=== PATIENT | female | born 1940 | race Caucasian/White ===

== ENCOUNTER → 2022-07-09 13:04 | Outpatient (BNVA) | payer MEDICARE, SELFPAY | PROVIDERS: PCP Internal Medicine; Visit Provider Student in an Organized Health Care Education/Training Program | DX: M05.80 Other rheumatoid arthritis with rheumatoid factor of unspecified site (principal); Z79.631 Long term (current) use of antimetabolite agent | CPT/HCPCS: 99202 ==

== ENCOUNTER 2022-11-10 12:56 | Outpatient (AMB) | payer MEDICARE, SELFPAY ==
--- NOTE | 2022-11-10 12:57 | MHC.OFFVIS ---
Intake Vital Signs 11/10/22 12:58 Height 5 ft 4 in Weight 174 lb 13.225 oz BMI 30.0 BP 150/82 H Blood Pressure Location Rt brachial Position Sitting Pulse 78 Pulse Source Pulse Oximeter Pulse Oximetry (%) 97 Oxygen Delivery Method Room Air Intake Visit Reasons: RA Intake Note: Patient presents for RA Allergies hydrochlorothiazide [Zestoretic] Allergy (Unknown, Verified 11/10/22 13:00) Unknown hydroxychloroquine [Plaquenil] Allergy (Unknown, Verified 11/10/22 13:00) Unknown ibuprofen Allergy (Unknown, Verified 11/10/22 13:00) Unknown lisinopril [Zestoretic] Allergy (Unknown, Verified 11/10/22 13:00) Unknown sacubitril [Entresto] Allergy (Unknown, Verified 11/10/22 13:00) Unknown valsartan [Entresto] Allergy (Unknown, Verified 11/10/22 13:00) Unknown Medication List - Last Reconciled 11/10/22 by Alphonse Washington MD aspirin 81 mg PO DAILY atorvastatin 40 mg PO DAILY folic acid 3 mg PO DAILY lisinopril 10 mg PO BID methotrexate sodium 25 mg (10 x 2.5 mg) PO QWEEK metoprolol tartrate 25 mg PO BID metoprolol tartrate 50 mg PO BID omeprazole 20 mg PO DAILY sulfasalazine 500 mg PO BID HPI HPI Comments History of Present Illness Details 82-year-old female with seropositive erosive RA returns for follow-up. Doing about the same overall. Continues to multiple joint aches and stiffness. But states that her mobility is unchanged. She called her insurance company and ask about copays for multiple biologics including TNF inhibitors, I 6 inhibitors, Orencia and she was told she will have a co-pay of 1500 dollars a month. Initial history: this is an 81-year-old female with seropositive erosive RA who presents as a new patient. 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 She had a history of hypertension, dyslipidemia, CAD s/p CABG who presents for RA evaluation. Patient states that she feels about the same. He has some pain and stiffness of her right shoulder. Her major problem is in her right knee. She states that her arthritis is worse with cold weather and when it is damp. She continues to take methotrexate 10 tabs once weekly plus folic acid and sulfasalazine 500 mg Twice daily. She denies any shortness of breath PFSH Medical History Allergic rhinitis CAD (coronary artery disease) Congestive heart failure Dyslipidemia Hypertension Surgical History Hx of CABG Social History Alcohol intake: current Alcohol intake frequency: holidays/special occasions only Alcohol type: wine Patient Tobacco Use Status: Never used Tobacco Review of Systems Eyes Reports no additional complaints Musc Reports arthralgias, Reports limited range of motion and Reports stiffness Physical Exam Vital Signs: Last Vital Signs Pulse 78 11/10/22 12:58 BP 150/82 H 11/10/22 12:58 Pulse Ox 97 11/10/22 12:58 Oxygen Delivery Method Room Air 11/10/22 12:58 BMI result Body Mass Index 30.0 Const General: cooperative, healthy appearing and comfortable Nutritional Appearance: overweight Orientation/consciousness: patient oriented x3 Limitations: no limitations HEENT Head: Yes normocephalic and Yes atraumatic Mouth: moist mucous membranes Resp Effort & Inspection: normal respiratory effort and able to speak in complete sentences Neuro General: patient oriented x3 Extrem Other: RA and osteoarthritic changes of both hands. Right wrist swelling without tenderness multiple swan-neck deformities Ulnar deviation at the MCPs of left hand. Significantly limited range of motion of right shoulder left knee swelling, warmth, crepitus and pain with range of motion Deformities of toes bilaterally Results Reviewed Results Reviewed: Labs 01/2022? CRP 59.6 (<9) ESR 55 CMP unremarkable except for low albumin 3.2 CBC Hemoglobin 10.9 MCV 93.8? Platelets 346 WBC 7.9 2 Labs 05/2021? CRP 103.2 ESR 69 QuantiFERON test negative Labs 03/2021? CRP 55.2 ESR 43 Labs 12/2020? Iron 42 (35-150) TIBC 213 (250-450) Iron saturation % 19.7 Labs 08/2020? Immunofixation:? No monoclonal proteins detected Assessment & Plan Assessment & Plan (1) Seropositive erosive rheumatoid arthritis: Comment: ++RF++CCP erosive dx 2017 side effect to HCQ On methotrexate throughout Sulfasalazine added around 2020 Code(s): M05.80 - Other rheumatoid arthritis with rheumatoid factor of unspecified site Plan: This is an 82-year-old female with seropositive erosive RA who presents for follow-up. Her inflammatory markers are persistently elevated Patient previously refused biologic treatments. She is worried about the risk of infections and she stated that her co-pay is quite high. She called her insurance company and has about multiple biologics and he was told that her co-pay would be above 1500 dollars a month We had a long conversation today about the risk of uncontrolled rheumatoid arthritis such as worsening deformities, ruptured tendons, accelerated osteoarthritis in addition to risk of cardiovascular disease. Patient already has CAD s/p CABG. We also discussed risks and benefits of biologic treatments. We also discussed potentially doing infusions which likely would be 80% covered by her Medicare Part B and 20% by her supplemental insurance. Patient is not interested in that at this point I suggested adding leflunomide or increasing sulfasalazine dose. Patient is not interested in making any changes today. She will think about Continue methotrexate 25 mg once weekly split dose and folic acid 3 mg daily. 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 Will monitor patient for side effects with frequent lab work. Advised patient to take folic acid daily to prevent complications of methotrexate. (3) Screening for osteoporosis: Code(s): Z13.820 - Encounter for screening for osteoporosis Plan: Due to active RA and her age, she is at risk of osteoporosis. Will discuss a DEXA scan next visit Plan I spent 29 minutes reviewing patient's chart, evaluating patient, ordering diagnostic workup, counseling patient and documenting in the chart Orders: Orders Comprehensive Met. 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
[2022-11-10 12:58] VITALS: BP 150/82; PULSE 78; O2SAT 97
== END 2022-11-10 13:40 | disposition home or self-care (01) ==
PROVIDERS: PCP Internal Medicine; Visit Provider Student in an Organized Health Care Education/Training Program
DX: M05.80 Other rheumatoid arthritis with rheumatoid factor of unspecified site (principal); Z79.631 Long term (current) use of antimetabolite agent; Z13.820 Encounter for screening for osteoporosis
CPT/HCPCS: 99214

== ENCOUNTER → 2022-11-10 12:56 | Outpatient (BNVA) | payer MEDICARE, SELFPAY | PROVIDERS: Visit Provider Student in an Organized Health Care Education/Training Program | DX: M05.80 Other rheumatoid arthritis with rheumatoid factor of unspecified site (principal); Z79.631 Long term (current) use of antimetabolite agent | CPT/HCPCS: 99212 ==

== ENCOUNTER 2023-04-20 11:45 | Outpatient (REF) | payer MEDICARE, SELFPAY ==
[2023-04-20 13:18] LABS: MANUAL DIFF FLAG NO
[2023-04-20 13:21] LABS: Basophils Percent Auto 0.3 % (0-2); Eosinophils Absolute Auto 0.3 X10*3/uL (0.0-0.4); Eosinophils Percent Auto 3.2 % (0-4); Hematocrit 36.2 % (37.0-47.0); Hemoglobin 11.9 g/dl (12.0-16.0); Imm Gran Abs Auto 0.03 X10*3/uL (0.00-0.03); Imm Gran Pct Auto 0.3 % (0.0-0.4); Lymphocytes Absolute Auto 1.5 X10*3/uL (1.2-4.9); Lymphocytes Percent Auto 14.4 % (20-40); Mean Corpuscular HGB Conc 32.9 g/dl (31.0-35.0); Mean Corpuscular Hemoglobin 31.2 pg (27.0-33.0); Mean Platelet Volume 9.4 fL (9.4-12.3); Monocytes Absolute Auto 0.9 X10*3/uL (0.1-1.2); Monocytes Percent Auto 8.4 % (2-11); Neutrophils Absolute Auto 7.7 x10*3/uL (2.0-8.3); Neutrophils Percent Auto 73.4 % (45-73); Platelet Count 299 X10*3/uL (160-400); Red Blood Count 3.81 X10*6/uL (4.20-5.50); Red Cell Distribution Width 15.4 % (11.0-16.0); White Blood Count 10.5 X10*3/uL (4.8-10.8)
[2023-04-20 14:00] LABS: Erythrocyte Sedimentation Rate 23 MM/HR (0-20)
[2023-04-20 14:55] LABS: Alanine Aminotransferase 9 U/L (0-31); Alkaline Phosphatase 113 U/L (39-117); Anion Gap 10 (12-20); Aspartate Amino Transferase 17 U/L (5-31); Bilirubin Total 0.4 mg/dL (0.0-1.0); Blood Urea Nitrogen 12 mg/dL (9-16); C Reactive Protein 1.25 mg/dL (< or = 0.50); Calcium 9.3 mg/dL (8.4-10.2); Carbon Dioxide 29 mmol/L (22-29); Chloride 104 mmol/L (96-108); Estimated Glomerular Filt Rate > 60; Glucose Random 104 mg/dL (60-115); Potassium 4.4 mmol/L (3.3-5.1); Sodium 139 mmol/L (135-145); Total Protein 7.2 g/dL (6.5-8.0)
== END 2023-04-20 11:46 | disposition home or self-care (01) ==
LOC: HO.10HDL 11:45
PROVIDERS: Visit Provider Student in an Organized Health Care Education/Training Program
DX: M05.9 Rheumatoid arthritis with rheumatoid factor, unspecified (principal); Z79.631 Long term (current) use of antimetabolite agent
CPT/HCPCS: 36415; 80053; 85025; 85652; 86140

== ENCOUNTER 2023-04-29 12:51 | Outpatient (AMB) | payer MEDICARE, SELFPAY ==
--- NOTE | 2023-04-29 12:53 | A.OFFVIS_ITS ---
Intake Vital Signs 04/29/23 12:54 Height 5 ft 4 in Weight 182 lb 8.684 oz BMI 31.3 BP 120/72 Blood Pressure Location Lt brachial Position Sitting Pulse 74 Pulse Source Pulse Oximeter Temp 97 F Temp Source Skin Pulse Oximetry (%) 98 Oxygen Delivery Method Room Air Intake Visit Reasons: RA Intake Note: Patient last seen 11/10/22 presents today for follow up and test results. Reports no changes or concerns today. 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 Clerk Required: No Accompanied by: Self / Same As Patient Allergies hydrochlorothiazide [Zestoretic] Allergy (Unknown, Verified 04/29/23 12:54) Unknown hydroxychloroquine [Plaquenil] Allergy (Unknown, Verified 04/29/23 12:54) Unknown ibuprofen Allergy (Unknown, Verified 04/29/23 12:54) Unknown lisinopril [Zestoretic] Allergy (Unknown, Verified 04/29/23 12:54) Unknown sacubitril [Entresto] Allergy (Unknown, Verified 04/29/23 12:54) Unknown valsartan [Entresto] Allergy (Unknown, Verified 04/29/23 12:54) Unknown Medication List - Last Reconciled 04/29/23 by Alphonse Washington MD aspirin 81 mg PO DAILY atorvastatin 40 mg PO DAILY cholecalciferol (vitamin D3) 1 PO QWEEK folic acid 3 mg (3 x 1 mg) PO DAILY lisinopril 10 mg PO BID methotrexate sodium 25 mg (10 x 2.5 mg) PO QWEEK metoprolol tartrate 25 mg PO BID metoprolol tartrate 50 mg PO BID omeprazole 20 mg PO DAILY sulfasalazine 500 mg PO BID HPI HPI Comments History of Present Illness Details 82-year-old female with seropositive ero sive RA returns for follow-up. Doing about the same overall. She states that she feels Slightly better. Continues to have multiple joint aches and stiffness. But states that her mobility is unchanged. Has not had any falls Initial history: this is an 81-year-old female with seropositive erosive RA who presents as a new patient. 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 She had a history of hypertension, dyslipidemia, CAD s/p CABG who presents for RA evaluation. Patient states that she feels about the same. He has some pain and stiffness of her right shoulder. Her major problem is in her right knee. She states that her arthritis is worse with cold weather and when it is damp. She continues to take methotrexate 10 tabs once weekly plus folic acid and sulfasalazine 500 mg Twice daily. She denies any shortness of breath [facility] Medical History Allergic rhinitis CAD (coronary artery disease) Congestive heart failure Dyslipidemia Hypertension Surgical History Hx of CABG Social History Household Members: None Household Members Other:: [employer] [place] Alcohol intake: current Alcohol intake frequency: holidays/special occasions only Alcohol type: wine Patient Tobacco Use Status: Never used Tobacco Review of Systems Eyes Reports no additional complaints Musc Reports arthralgias, Reports limited range of motion and Reports stiffness Physical Exam Vital Signs: Last Vital Signs Temp 97 F 04/29/23 12:54 Pulse 74 04/29/23 12:54 BP 120/72 04/29/23 12:54 Pulse Ox 98 04/29/23 12:54 Oxygen Delivery Method Room Air 04/29/23 12:54 BMI result Body Mass Index 31.3 Const General: cooperative, healthy appearing and comfortable Nutritional Appearance: overweight Orientation/consciousness: patient oriented x3 Limitations: no limitations HEENT Head: Yes normocephalic and Yes atraumatic Mouth: moist mucous membranes Resp Effort & Inspection: normal respiratory effort and able to speak in complete sentences Neuro General: patient oriented x3 Extrem Other: RA and osteoarthritic changes of both hands. Right wrist swelling without tenderness multiple swan-neck deformities Ulnar deviation at the MCPs of left hand. Significantly limited range of motion of right shoulder Bilateral knee limited range of motion. Deformities of toes bilaterally Results Reviewed Results Reviewed: Labs 01/2022? CRP 59.6 (<9) ESR 55 CMP unremarkable except for low albumin 3.2 CBC Hemoglobin 10.9 MCV 93.8? Platelets 346 WBC 7.9 2 Labs 05/2021? CRP 103.2 ESR 69 QuantiFERON test negative Labs 03/2021? CRP 55.2 ESR 43 Labs 12/2020? Iron 42 (35-150) TIBC 213 (250-450) Iron saturation % 19.7 Labs 08/2020? Immunofixation:? No monoclonal proteins detected Assessment & Plan Assessment & Plan (1) Seropositive erosive rheumatoid arthritis: Comment: ++RF++CCP erosive dx 2017 side effect to HCQ On methotrexate throughout Sulfasalazine added around 2020 Code(s): M05.80 - Other rheumatoid arthritis with rheumatoid factor of unspecified site Plan: This is an 82-year-old female with seropositive erosive RA who presents for follow-up. Her inflammatory markers are persistently elevated Patient previously refused biologic treatments. She is worried about the risk of infections and she stated that her co-pay is quite high. She called her insurance company and has about multiple biologics and he was told that her co- pay would be above 1500 dollars a month We had a long conversation today about the risk of uncontrolled rheumatoid arthritis such as worsening deformities, ruptured tendons, accelerated osteoarthritis in addition to risk of cardiovascular disease. Patient already has CAD s/p CABG. Patient definitely does not want any biologics. Discussed increasing sulfasalazine to 1000 mg Twice daily. Patient agrees. Continue methotrexate 25 mg once weekly split dose and folic acid 3 mg daily. 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 Will monitor patient for side effects with frequent lab work. Advised patient to take folic acid daily to prevent complications of methotrexate. (3) Screening for osteoporosis: Code(s): Z13.820 - Encounter for screening for osteoporosis Plan: Due to active RA and her age, she is at risk of osteoporosis. DEXA scan discussed. Discussed weight-bearing exercises. Will check vitamin-D level before next visit (4) Immunization counseling: Code(s): Z71.85 - Encounter for immunization safety counseling Plan: Patient is up-to-date on her COVID booster, flu vaccine, RSV vaccine & pneumonia vaccine Plan I spent 29 minutes reviewing patient's chart, evaluating patient, ordering diagnostic workup, counseling patient and documenting in the chart Orders: Orders Comprehensive Met. Panel 6 Months Z79.631 - assisted (current) use of antimetabolite agent C Reactive Protein 6 Months Z79.631 - assisted (current) use of antimetabolite agent Complete Blood Count Auto Diff Today M05.80 - Other rheumatoid arthritis with rheumatoid factor of unspecified site, Z79.631 - assisted (current) use of antimetabolite agent C Reactive Protein Today M05.80 - Other rheumatoid arthritis with rheumatoid factor of unspecified site, Z79.631 - ocean transportation intermediary (current) use of antimetabolite agent Complete Blood Count Auto Diff 07/28/23 M05.80 - Other rheumatoid arthritis with rheumatoid factor of unspecified site, Z79.631 - assisted (current) use of antimetabolite agent Complete Blood Count Auto Diff 10/26/23 M05.80 - Other rheumatoid arthritis with rheumatoid factor of unspecified site, Z79.631 - assisted (current) use of antimetabolite agent Complete Blood Count Auto Diff 07/22/24 M05.80 - Other rheumatoid arthritis with rheumatoid factor of unspecified site, Z79.631 - ocean transportation intermediary (current) use of antimetabolite agent Complete Blood Count Auto Diff 01/18/25 M05.80 - Other rheumatoid arthritis with rheumatoid factor of unspecified site, Z79.631 - assisted (current) use of antimetabolite agent Comprehensive Met. Panel Today M05.80 - Other rheumatoid arthritis with rheumatoid factor of unspecified site, Z79.631 - assisted (current) use of antimetabolite agent Comprehensive Met. Panel 01/24/24 M05.80 - Other rheumatoid arthritis with rheumatoid factor of unspecified site, Z79.631 - assisted (current) use of antimetabolite agent Comprehensive Met. Panel 04/23/24 M05.80 - Other rheumatoid arthritis with rheumatoid factor of unspecified site, Z79.631 - assisted (current) use of antimetabolite agent Vitamin D 25-OH (D2 and D3) 6 Months E55.9 - Vitamin D deficiency, unspecified Complete Blood Count Auto Diff 6 Months Z79.631 - assisted (current) use of antimetabolite agent Erythrocyte Sedimentation Rate 6 Months Z79.631 - ocean transportation intermediary (current) use of antimetabolite agent Comprehensive Met. Panel Today M05.80 - Other rheumatoid arthritis with rheumatoid factor of unspecified site, Z79.631 - ocean transportation intermediary (current) use of antimetabolite agent Erythrocyte Sedimentation Rate Today M05.80 - Other rheumatoid arthritis with rheumatoid factor of unspecified site, Z79.631 - assisted (current) use of antimetabolite agent Complete Blood Count Auto Diff Today M05.80 - Other rheumatoid arthritis with rheumatoid factor of unspecified site, Z79.631 - assisted (current) use of antimetabolite agent Complete Blood Count Auto Diff 01/24/24 M05.80 - Other rheumatoid arthritis with rheumatoid factor of unspecified site, Z79.631 - ocean transportation intermediary (current) use of antimetabolite agent Complete Blood Count Auto Diff 04/23/24 M05.80 - Other rheumatoid arthritis with rheumatoid factor of unspecified site, Z79.631 - ocean transportation intermediary (current) use of antimetabolite agent Complete Blood Count Auto Diff 10/20/24 M05.80 - Other rheumatoid arthritis with rheumatoid factor of unspecified site, Z79.631 - ocean transportation intermediary (current) use of antimetabolite agent Comprehensive Met. Panel 07/28/23 M05.80 - Other rheumatoid arthritis with rheumatoid factor of unspecified site, Z79.631 - assisted (current) use of antimetabolite agent Comprehensive Met. Panel 10/26/23 M05.80 - Other rheumatoid arthritis with rheumatoid factor of unspecified site, Z79.631 - ocean transportation intermediary (current) use of antimetabolite agent Comprehensive Met. Panel 07/22/24 M05.80 - Other rheumatoid arthritis with rheumatoid factor of unspecified site, Z79.631 - assisted (current) use of antimetabolite agent Comprehensive Met. Panel 10/20/24 M05.80 - Other rheumatoid arthritis with rheumatoid factor of unspecified site, Z79.631 - assisted (current) use of antimetabolite agent Comprehensive Met. Panel 01/18/25 M05.80 - Other rheumatoid arthritis with rheumatoid factor of unspecified site, Z79.631 - ocean transportation intermediary (current) use of antimetabolite agent C Reactive Protein Today M05.80 - Other rheumatoid arthritis with rheumatoid factor of unspecified site, Z79.631 - assisted (current) use of antimetabolite agent Erythrocyte Sedimentation Rate Today M05.80 - Other rheumatoid arthritis with rheumatoid factor of unspecified site, Z79.631 - assisted (current) use of antimetabolite agent XR DEXA axial skeleton Today M81.0 - Age-related osteoporosis without current pathological fracture Medications: Changed From sulfasalazine 500 mg PO BID 180 tabs 1RF To sulfasalazine 1 g (2 x 500 mg) PO BID 120 tabs 2RF Refilled folic acid 3 mg (3 x 1 mg) PO DAILY 270 tabs 1RF Coding Level of Care Code Est Pt Level 5 (91535) Diagnoses Seropositive erosive rheumatoid arthritis M05.80 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
[2023-04-29 12:54] VITALS: BP 120/72; PULSE 74; TEMP 36.1; O2SAT 98; BMI 31.3
== END 2023-04-29 13:23 | disposition home or self-care (01) ==
PROVIDERS: PCP Internal Medicine; Visit Provider Student in an Organized Health Care Education/Training Program
DX: M05.79 Rheumatoid arthritis with rheumatoid factor of multiple sites without organ or systems involvement (principal); Z79.631 Long term (current) use of antimetabolite agent; Z13.820 Encounter for screening for osteoporosis; Z71.85 Encounter for immunization safety counseling
CPT/HCPCS: 99214

== ENCOUNTER → 2023-04-29 12:51 | Outpatient (BNVA) | payer MEDICARE, SELFPAY | PROVIDERS: PCP Internal Medicine; Visit Provider Student in an Organized Health Care Education/Training Program | DX: M05.80 Other rheumatoid arthritis with rheumatoid factor of unspecified site (principal); Z79.631 Long term (current) use of antimetabolite agent; Z71.85 Encounter for immunization safety counseling | CPT/HCPCS: 99212 ==

== ENCOUNTER 2023-05-14 10:49 | Outpatient (REF) | payer MEDICARE, SELFPAY ==
--- NOTE | ~2023-05-14 | MM_ITS ---
EXAMINATION: BONE DENSITOMETRY CLINICAL INDICATION: Age-related osteoporosis without current pathological fracture. COMPARISON: This is the patient's baseline examination. TECHNIQUE: Using a [employer] DXA System (software version: 13.1) manufactured by [employer], dual-energy x-ray absorptiometry was performed of the lumbar spine and left hip. The images are of good technical quality. Summary results are attached. FINDINGS: AP SPINE L1-L4: BMD 1.121 g/cm2, Z-score 1.0, T-score -0.5, normal. LEFT FEMUR, NECK: BMD 0.637 g/cm2, Z-score -0.8, T-score -2.9, osteoporosis. LEFT FEMUR, TOTAL: BMD 0.677 g/cm2, Z-score -0.7, T-score -2.6, osteoporosis. IDENTIFIED RISK FACTORS: Rheumatoid arthritis. Secondary osteoporosis (early menopause). Hysterectomy. Bilateral oophorectomy. HISTORY OF FRACTURE: None listed. MEDICATIONS: None listed. MM/XR DEXA axial skeleton IMPRESSION: 1. DIAGNOSIS: Osteoporosis based on the lowest T-score value of -2.9 in the femoral neck applying World Health Organization criteria. 2. 10-YEAR FRACTURE RISK PREDICTION, FRAX: According to the guidelines, FRAX calculation should only be performed on patients in the osteopenia bone density category.?Therefore, FRAX was not performed on this patient.? 3. Treatment Recommendations: NOF guidelines recommend consideration for treatment in postmenopausal women and men age 50 and older presenting with the following: -A hip or vertebral (clinical or morphometric) fracture. -T-score less than or equal to -2.5 at the femoral neck or spine after appropriate evaluation to exclude secondary causes. -Low bone mass at the hip or spine and a 10-year fracture probability by FRAX of greater than or equal to 3% for hip fracture or greater than or equal to 20% for major osteoporotic fracture based on the [place] adapted WHO algorithm. 4. Other Recommendations: All treatment decisions require clinical judgment and consideration of individual patient factors, including patient preferences, comorbidities, previous drug use, risk factors not captured in the FRAX model (e.g. frailty, falls, vitamin D deficiency, increased bone turnover, interval significant decline in bone density) and possible under or overestimation of fracture risk by FRAX. Additional medical evaluation for secondary cause of low bone mineral density may be appropriate. FUTURE SCAN RECOMMENDATION: People with diagnosed cases of osteoporosis or at high risk for fracture should have regular bone mineral density tests. For patients eligible for Medicare, routine testing is allowed once every 2 years. The testing frequency can be increased to one year for patients who have rapidly progressing disease, those who are receiving or discontinuing medical therapy to restore bone mass, or have additional risk factors.
== END 2023-05-14 10:50 | disposition home or self-care (01) ==
LOC: HO.MAMMO 10:49
PROVIDERS: Visit Provider Student in an Organized Health Care Education/Training Program
DX: Z13.820 Encounter for screening for osteoporosis (principal); M81.0 Age-related osteoporosis without current pathological fracture; M06.9 Rheumatoid arthritis, unspecified; Z90.710 Acquired absence of both cervix and uterus; Z90.722 Acquired absence of ovaries, bilateral
CPT/HCPCS: 77080

== ENCOUNTER 2023-10-26 11:19 | Outpatient (REF) | payer MEDICARE, SELFPAY ==
[2023-10-26 11:40] LABS: MANUAL DIFF FLAG NO
[2023-10-26 12:32] LABS: Basophils Percent Auto 0.3 % (0-2); Eosinophils Absolute Auto 0.3 X10*3/uL (0.0-0.4); Eosinophils Percent Auto 3.7 % (0-4); Hematocrit 36.5 % (37.0-47.0); Hemoglobin 11.6 g/dl (12.0-16.0); Imm Gran Abs Auto 0.06 X10*3/uL (0.00-0.03); Imm Gran Pct Auto 0.7 % (0.0-0.4); Lymphocytes Absolute Auto 1.5 X10*3/uL (1.2-4.9); Lymphocytes Percent Auto 16.5 % (20-40); Mean Corpuscular HGB Conc 31.8 g/dl (31.0-35.0); Mean Corpuscular Hemoglobin 30.8 pg (27.0-33.0); Mean Corpuscular Volume 96.8 fL (80.0-98.0); Mean Platelet Volume 9.6 fL (9.4-12.3); Monocytes Absolute Auto 0.9 X10*3/uL (0.1-1.2); Neutrophils Absolute Auto 6.2 x10*3/uL (2.0-8.3); Neutrophils Percent Auto 68.8 % (45-73); Platelet Count 291 X10*3/uL (160-400); Red Blood Count 3.77 X10*6/uL (4.20-5.50); Red Cell Distribution Width 15.2 % (11.0-16.0)
[2023-10-26 12:55] LABS: Alanine Aminotransferase 8 U/L (0-31); Albumin Level 3.7 g/dL (3.5-5.0); Alkaline Phosphatase 112 U/L (39-117); Anion Gap 15 (12-20); Aspartate Amino Transferase 14 U/L (5-31); Bilirubin Total 0.3 mg/dL (0.0-1.0); Blood Urea Nitrogen 10 mg/dL (9-16); C Reactive Protein 2.29 mg/dL (< or = 0.50); Calcium 9.5 mg/dL (8.4-10.2); Carbon Dioxide 20 mmol/L (22-29); Chloride 107 mmol/L (96-108); Estimated Glomerular Filt Rate > 60; Glucose Random 111 mg/dL (60-115); Potassium 4.2 mmol/L (3.3-5.1); Sodium 138 mmol/L (135-145)
[2023-10-30 14:23] LABS: Vitamin D 25-OH, D2 <4 ng/mL; Vitamin D 25-OH, D3 27 ng/mL; Vitamin D 25-OH, Total 27 ng/mL (30-100)
== END 2023-10-26 11:20 | disposition home or self-care (01) ==
LOC: HO.LAB 11:19
PROVIDERS: Visit Provider Student in an Organized Health Care Education/Training Program
DX: M05.80 Other rheumatoid arthritis with rheumatoid factor of unspecified site (principal); Z79.631 Long term (current) use of antimetabolite agent; E55.9 Vitamin D deficiency, unspecified
CPT/HCPCS: 36415; 80053; 82306; 85025; 85652; 86140

== ENCOUNTER 2023-10-29 09:33 | Outpatient (REF) | payer MEDICARE, SELFPAY ==
[2023-10-29 09:54] LABS: MANUAL DIFF FLAG NO
[2023-10-29 11:04] LABS: Basophils Percent Auto 0.4 % (0-2); Eosinophils Absolute Auto 0.4 X10*3/uL (0.0-0.4); Eosinophils Percent Auto 4.4 % (0-4); Hematocrit 35.8 % (37.0-47.0); Hemoglobin 11.6 g/dl (12.0-16.0); Imm Gran Abs Auto 0.03 X10*3/uL (0.00-0.03); Imm Gran Pct Auto 0.4 % (0.0-0.4); Lymphocytes Absolute Auto 1.5 X10*3/uL (1.2-4.9); Lymphocytes Percent Auto 18.6 % (20-40); Mean Corpuscular HGB Conc 32.4 g/dl (31.0-35.0); Mean Corpuscular Hemoglobin 30.7 pg (27.0-33.0); Mean Corpuscular Volume 94.7 fL (80.0-98.0); Mean Platelet Volume 9.8 fL (9.4-12.3); Monocytes Absolute Auto 0.4 X10*3/uL (0.1-1.2); Monocytes Percent Auto 5.5 % (2-11); Neutrophils Absolute Auto 5.7 x10*3/uL (2.0-8.3); Neutrophils Percent Auto 70.7 % (45-73); Platelet Count 322 X10*3/uL (160-400); Red Blood Count 3.78 X10*6/uL (4.20-5.50); Red Cell Distribution Width 14.7 % (11.0-16.0)
[2023-10-29 11:45] LABS: Erythrocyte Sedimentation Rate 36 MM/HR (0-20)
[2023-10-29 12:03] LABS: Alanine Aminotransferase 12 U/L (0-31); Alkaline Phosphatase 113 U/L (39-117); Anion Gap 12 (12-20); Aspartate Amino Transferase 17 U/L (5-31); Bilirubin Total 0.5 mg/dL (0.0-1.0); Blood Urea Nitrogen 9 mg/dL (9-16); Carbon Dioxide 28 mmol/L (22-29); Chloride 105 mmol/L (96-108); Estimated Glomerular Filt Rate > 60; Glucose Random 96 mg/dL (60-115); Potassium 4.4 mmol/L (3.3-5.1); Sodium 141 mmol/L (135-145); Total Protein 7.2 g/dL (6.5-8.0)
== END 2023-10-29 09:34 | disposition home or self-care (01) ==
LOC: HO.LAB 09:33
PROVIDERS: PCP Internal Medicine; Visit Provider Student in an Organized Health Care Education/Training Program
DX: M05.80 Other rheumatoid arthritis with rheumatoid factor of unspecified site (principal); Z79.631 Long term (current) use of antimetabolite agent
CPT/HCPCS: 36415; 80053; 85025; 85652; 86140

== ENCOUNTER 2023-11-02 09:26 | Outpatient (AMB) | payer MEDICARE, SELFPAY ==
--- NOTE | 2023-11-02 09:43 | MHC.OFFVIS ---
Vital Signs 11/02/23 09:47 Height 5 ft 4 in Weight 177 lb 14.609 oz BMI 30.5 BP 124/62 Blood Pressure Location Lt brachial Position Sitting Pulse 70 Pulse Source Pulse Oximeter Pulse Oximetry (%) 98 Oxygen Delivery Method Room Air Intake Visit Reasons: RA/CM Intake Note: Patient presents for RA. Allergies hydrochlorothiazide [Zestoretic] Allergy (Unknown, Verified 11/02/23 09:47) Unknown hydroxychloroquine [Plaquenil] Allergy (Unknown, Verified 11/02/23 09:47) Unknown ibuprofen Allergy (Unknown, Verified 11/02/23 09:47) Unknown lisinopril [Zestoretic] Allergy (Unknown, Verified 11/02/23 09:47) Unknown sacubitril [Entresto] Allergy (Unknown, Verified 11/02/23 09:47) Unknown valsartan [Entresto] Allergy (Unknown, Verified 11/02/23 09:47) Unknown Medication List - Last Reconciled 11/02/23 by Alphonse Washington MD aspirin 81 mg PO DAILY atorvastatin 40 mg PO DAILY cholecalciferol (vitamin D3) 1 PO QWEEK folic acid 3 mg (3 x 1 mg) PO DAILY lisinopril 10 mg PO BID methotrexate sodium 25 mg (10 x 2.5 mg) PO QWEEK metoprolol tartrate 25 mg PO BID metoprolol tartrate 50 mg PO BID omeprazole 20 mg PO DAILY sulfasalazine 1 g (2 x 500 mg) PO BID HPI Comments Details: 83-year-old female with seropositive erosive RA returns for follow-up. Doing about the same overall. She could not tolerate sulfasalazine 1 g Twice daily due to GI upset and nausea, she reduced it back to 500 mg Twice daily, she remains on methotrexate and folic acid. She states that she feels about the same overall, no significant joint pain swelling or stiffness. Has not had any falls, has not had any recent illnesses Initial history: this is an 81-year-old female with seropositive erosive RA who presents as a new patient. 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 She had a history of hypertension, dyslipidemia, CAD s/p CABG who presents for RA evaluation. Patient states that she feels about the same. He has some pain and stiffness of her right shoulder. Her major problem is in her right knee. She states that her arthritis is worse with cold weather and when it is damp. She continues to take methotrexate 10 tabs once weekly plus folic acid and sulfasalazine 500 mg Twice daily. She denies any shortness of breath [facility] Medical History Allergic rhinitis CAD (coronary artery disease) Congestive heart failure Dyslipidemia Hypertension Surgical History Hx of CABG Social History Household Members: None Household Members Other:: [facility] Alcohol intake: current Alcohol intake frequency: holidays/special occasions only Alcohol type: wine Patient Tobacco Use Status: Never used Tobacco Female Reproductive History Menstrual Total pregnancies: 4 Full term: 4 Number of Living Children: 3 Review of Systems Eyes Reports no additional complaints Musc Reports arthralgias, Reports limited range of motion and Reports stiffness Physical Exam Vital Signs: Last Vital Signs Pulse 70 11/02/23 09:47 BP 124/62 11/02/23 09:47 Pulse Ox 98 11/02/23 09:47 Oxygen Delivery Method Room Air 11/02/23 09:47 BMI result Body Mass Index 30.5 Const General: cooperative, healthy appearing and comfortable Nutritional Appearance: overweight Orientation/consciousness: patient oriented x3 Limitations: no limitations HEENT Head: Yes normocephalic and Yes atraumatic Mouth: moist mucous membranes Resp Effort & Inspection: normal respiratory effort and able to speak in complete sentences Auscultation: clear to auscultation bilaterally Cardio Rate: regular rate Rhythm: regular rhythm Neuro General: patient oriented x3 Extrem Other: RA and osteoarthritic changes of both hands. no wrist tenderness or swelling bilaterally multiple swan-neck deformities Ulnar deviation at the MCPs of left hand. Significantly limited range of motion of right shoulder Bilateral knee crepitus and limited range of motion. No pain Deformities of toes bilaterally Assessment & Plan Assessment & Plan (1) Seropositive erosive rheumatoid arthritis: Comment: ++RF++CCP erosive dx 2017 side effect to HCQ On methotrexate throughout Sulfasalazine added around 2020 Code(s): M05.80 - Other rheumatoid arthritis with rheumatoid factor of unspecified site Category: Medical Plan: This is an 83-year-old female with seropositive erosive RA who presents for follow-up. Her inflammatory markers are persistently elevated Patient previously refused and continues to refuse biologic treatments. She is worried about the risk of infections and she stated that her co-pay is quite high. She called her insurance company and has about multiple biologics and he was told that her co-pay would be above 1500 dollars a month In previous visits, We had multiple conversations about the risk of uncontrolled rheumatoid arthritis such as worsening deformities, ruptured tendons, accelerated osteoarthritis in addition to risk of cardiovascular disease. Patient already has CAD s/p CABG. Patient definitely does not want any biologics. I increased her sulfasalazine to 1 g Twice daily last visit, patient could not tolerate the increased dose due to GI upset and nausea, she reduced it it back to 500 mg Twice daily Continue methotrexate 25 mg once weekly split dose and folic acid 3 mg daily. 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 Will monitor patient for side effects with frequent lab work. Advised patient to take folic acid daily to prevent complications of methotrexate. (3) Osteoporosis: Code(s): M81.0 - Age-related osteoporosis without current pathological fracture Category: Medical Qualifiers: Osteoporosis type: age-related Presence of current pathological fracture: without current pathological fracture Qualified Code(s): M81.0 - Age-related osteoporosis without current pathological fracture Plan: Discussed osteoporosis treatment. She states that she took calcium and vitamin-D prescribed by her PCP in the past for bone health and she developed a kidney stone, she stopped them. Discussed with patient that she needs antiresorptive agents. Discussed risks and benefits of alendronate. Patient agreed to proceed. Will start alendronate 70 mg weekly Advised patient to call the office if she develops any side effects Plan I spent 46 minutes reviewing patient's chart, evaluating patient, ordering diagnostic workup, counseling patient and documenting in the chart Medications: New alendronate Take 1 tab once weekly, 1st thing in the morning, on an empty stomach, with a large glass of water (at least 6 oz) and stay upright for 30 minutes 70 mg PO QWEEK 4 tabs 0RF Coding Level of Care Code Est Pt Level 5 (60347) Complex EM visit Add On G2211 Diagnoses Seropositive erosive rheumatoid arthritis M05.80 [facility] methotrexate user Z79.631 Age-related osteoporosis without current pathological fracture M81.0 Osteoporosis type: age-related Presence of current pathological fracture: without current pathological fracture
[2023-11-02 09:47] VITALS: BP 124/62; PULSE 70; O2SAT 98; BMI 30.5
== END 2023-11-02 10:28 | disposition home or self-care (01) ==
PROVIDERS: PCP Internal Medicine; Visit Provider Student in an Organized Health Care Education/Training Program
DX: M05.89 Other rheumatoid arthritis with rheumatoid factor of multiple sites (principal); Z79.631 Long term (current) use of antimetabolite agent; M81.0 Age-related osteoporosis without current pathological fracture
CPT/HCPCS: 99215; G2211

== ENCOUNTER → 2023-11-02 09:26 | Outpatient (BNVA) | payer MEDICARE, SELFPAY | PROVIDERS: PCP Internal Medicine; Visit Provider Student in an Organized Health Care Education/Training Program | DX: M05.80 Other rheumatoid arthritis with rheumatoid factor of unspecified site (principal); M81.0 Age-related osteoporosis without current pathological fracture; M25.611 Stiffness of right shoulder, not elsewhere classified; Z79.631 Long term (current) use of antimetabolite agent | CPT/HCPCS: 99212 ==

== ENCOUNTER 2024-07-12 10:50 | Outpatient (REF) | payer MEDICARE, SELFPAY ==
[2024-07-12 13:16] LABS: MANUAL DIFF FLAG NO
[2024-07-12 13:35] LABS: Basophils Percent Auto 0.3 % (0-2); Eosinophils Absolute Auto 0.4 X10*3/uL (0.0-0.4); Eosinophils Percent Auto 3.8 % (0-4); Hematocrit 36.3 % (37.0-47.0); Hemoglobin 11.7 g/dl (12.0-16.0); Imm Gran Abs Auto 0.05 X10*3/uL (0.00-0.03); Imm Gran Pct Auto 0.4 % (0.0-0.4); Lymphocytes Percent Auto 16.8 % (20-40); Mean Corpuscular HGB Conc 32.2 g/dl (31.0-35.0); Mean Corpuscular Hemoglobin 28.6 pg (27.0-33.0); Mean Corpuscular Volume 88.8 fL (80.0-98.0); Mean Platelet Volume 9.1 fL (9.4-12.3); Monocytes Absolute Auto 1.4 X10*3/uL (0.1-1.2); Monocytes Percent Auto 11.6 % (2-11); Neutrophils Absolute Auto 7.8 x10*3/uL (2.0-8.3); Neutrophils Percent Auto 67.1 % (45-73); Platelet Count 383 X10*3/uL (160-400); Red Blood Count 4.09 X10*6/uL (4.20-5.50); Red Cell Distribution Width 13.9 % (11.0-16.0); White Blood Count 11.6 X10*3/uL (4.8-10.8)
[2024-07-12 14:05] LABS: Alanine Aminotransferase 7 U/L (0-31); Albumin Level 3.9 g/dL (3.5-5.0); Alkaline Phosphatase 114 U/L (39-117); Anion Gap 10 (12-20); Aspartate Amino Transferase 21 U/L (5-31); Bilirubin Total 0.2 mg/dL (0.0-1.0); Blood Urea Nitrogen 14 mg/dL (9-16); Calcium 9.6 mg/dL (8.4-10.2); Carbon Dioxide 24 mmol/L (22-29); Chloride 108 mmol/L (96-108); Estimated Glomerular Filt Rate > 60; Glucose Random 81 mg/dL (60-115); Potassium 4.3 mmol/L (3.3-5.1); Sodium 138 mmol/L (135-145); Total Protein 7.6 g/dL (6.5-8.0)
== END 2024-07-12 10:51 | disposition home or self-care (01) ==
LOC: HO.10HDL 10:50
PROVIDERS: Visit Provider Student in an Organized Health Care Education/Training Program
DX: M05.80 Other rheumatoid arthritis with rheumatoid factor of unspecified site (principal); Z79.631 Long term (current) use of antimetabolite agent
CPT/HCPCS: 36415; 80053; 85025

== ENCOUNTER 2024-08-22 14:08 | Outpatient (AMB) | payer MEDICARE, SELFPAY ==
[2024-08-22 14:09] VITALS: BP 128/78; PULSE 88; O2SAT 98; BMI 29.9
--- NOTE | 2024-08-22 14:09 | A.OFFVIS_ITS ---
Vital Signs 08/22/24 14:09 Height 5 ft 4 in Weight 174 lb BMI 29.9 BP 128/78 Blood Pressure Location Lt brachial Position Sitting Pulse 88 Pulse Source Pulse Oximeter Pulse Oximetry (%) 98 Oxygen Delivery Method Room Air Intake Visit Reasons: RA Intake Note: Patient last seen by Doctor Alphonse Washington on 11/02/23. Presents today for RA follow up. Patient would like refill of Alendronate, if possible. Allergies hydrochlorothiazide [Zestoretic] Allergy (Unknown, Verified 08/22/24 14:14) Unknown hydroxychloroquine [Plaquenil] Allergy (Unknown, Verified 08/22/24 14:14) Unknown ibuprofen Allergy (Unknown, Verified 08/22/24 14:14) Unknown lisinopril [Zestoretic] Allergy (Unknown, Verified 08/22/24 14:14) Unknown sacubitril [Entresto] Allergy (Unknown, Verified 08/22/24 14:14) Unknown valsartan [Entresto] Allergy (Unknown, Verified 08/22/24 14:14) Unknown Medication List - Last Reconciled 08/22/24 by Dona Byrd MD alendronate 70 mg PO QWEEK aspirin 81 mg PO DAILY atorvastatin 40 mg PO DAILY lisinopril 10 mg PO BID metoprolol tartrate 25 mg PO BID metoprolol tartrate 50 mg PO BID omeprazole 20 mg PO DAILY HPI Comments Details: Patient is an 83-year-old female with hypertension, hyperlipidemia c/b CAD s/p CABG, osteoporosis polyarticular osteoarthritis and seropositive erosive rheumatoid for follow up Interval History: Patient last seen 11/02/[address] Washington. At that time she was following up for her seropositive erosive rheumatoid arthritis on methotrexate and sulfasalazine. Previously try to increase her sulfasalazine to 1 g twice a day however she had to reduce it to 500 twice a day due to GI upset and nausea. Patient despite having significant arthritic symptoms refuses to go on any biologics due to 1. The high co-pay from her insurance and 2. The concern about side effects. The risks of poorly treating her disease were discussed at the last visit including worsening deformities, ruptured tendons, accelerated osteoarthritis and increased risk of cardiovascular disease and patient did not want to pursue any further treatment. 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 Subsequently she stopped her sulfasalazine due to GI upset. Currently she is not on any medications for her rheumatoid arthritis. Today she states she is doing okay Complaining of right knee pain, which she has a brace on Rheumatologic History: ++RF++CCP erosive dx 2016 side effect to HCQ On methotrexate throughout Sulfasalazine added around 2020 Initial history: this is an 81-year-old female with seropositive erosive RA who presents as a new patient. 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 She had a history of hypertension, dyslipidemia, CAD s/p CABG who presents for RA evaluation. Patient states that she feels about the same. He has some pain and stiffness of her right shoulder. Her major problem is in her right knee. She states that her arthritis is worse with cold weather and when it is damp. She continues to take methotrexate 10 tabs once weekly plus folic acid and sulfasalazine 500 mg Twice daily. She denies any shortness of breath Current Rheumatology Medication(s): Sulfasalazine 500mg bid (not taking) Methotrexate 25mg split dose weekly (not taking) Folic acid 3 mg daily (not taking) Alendronate 70 mg weekly PFSH Medical History Allergic rhinitis CAD (coronary artery disease) Congestive heart failure Dyslipidemia Hypertension Surgical History Hx of CABG Social History Household Members: None Household Members Other:: [facility] Alcohol intake: current Alcohol intake frequency: holidays/special occasions only Alcohol type: wine Patient Tobacco Use Status: Never used Tobacco Review of Systems Const Details: Review of Systems Constitutional: Denies fever, chills, weight loss ENT: Denies vision changes, eye pain or eye redness, dental caries, dry mouth GI: Denies nausea, vomiting, diarrhea, abdominal pain, change in BM Pulm: Denies SOB, MINA, hemoptysis, wheezing Cards: Denies chest pain, palpitations Skin: Denies Raynaud's, rash, nail changes, photosensitivity, REGISTERED 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 Well appearing and in no apparent painful distress HEENT Conjunctiva and sclera clear. ?Pupils equal round and reactive to light. ?No lymphadenopathy. ? CHEST/RESPIRATORY SYSTEM Normal respiratory effort and able to speak in complete sentences. ?Clear to auscultation bilaterally. ?No crackles, rales, rhonchi, wheezes heard. CARDIAC SYSTEM Regular rate and rhythm. ?S1 and S2 heard no murmurs. ?Radial pulses intact bilaterally MSK Hands: ?Able to make a fist. No synovitis noted. Prominent synovial hypertrophy to the MCPs 2-5 bilaterally. With ulnar deviation. Heberden's nodes and Emi's nodes noted. Wrists: ?Decreased range of motion to the wrists bilaterally right worse than left. No tenderness to palpation or synovial hypertrophy noted. Elbows: Full range of motion without pain. No tenderness, weakness, swelling, increased warmth or erythema. Shoulders: Full range of motion to the left shoulder but decreased range of motion to the right shoulder up to about 90 degrees. No tenderness to palpation of the AC joint, subacromial bursa or posterior glenohumeral joint. Knees: ?Full range of motion. ?Crepitations felt bilaterally. Swelling noted to the right knee with mild effusion. Warmth to touch. Left knee cool to touch and no swelling noted. Ankles: Full range of motion. ?No tenderness, swelling, increased warmth or erythema.? Feet: ?Negative squeeze test. ?No tenderness to palpation or swelling of the MTPs. Tender points:?No tenderness to palpation of the bilateral trapezius, supraspinatus, greater trochanters, anterior costochondral junctions, bilateral gluteal areas, bilateral suboccipital muscle insertions SKIN Skin intact without rashes. Office Procedures AMB Joint Injection/Aspiration Joint Injection/Aspiration Details: Procedure was explained to the patient and consent was obtained. ? The area of interest was identified and confirmed with patient. ?This was subsequently cleaned with chlorhexidine x3. ? The area was then anesthetized using ethyl chloride spray. 40 mg Kenalog with 1 cc 1% lidocaine was injected without issue. ?Minimal to no bleeding. ?Patient tolerated procedure. Primary Site: right knee Prep: site was prepped using aseptic technique and ethochloride spray was applied Injected: 40 mg of, Kenalog, with 1 mL of, 1% plain lidocaine and in the joint Approach Used: anterior Procedure: The patient tolerated the procedure well Coding 79188 - Large joint Procedure code (CPT) selection complete Office Meds lidocaine (PF) 10 mg/mL (1 %) injection solution Performing Provider: Dona Byrd MD [place] [facility] [place] Administered by: Dona Byrd MD on 08/22/24 15:23 Dose Route Admin Location Dispensed Lot Number Expiration Date [facility] [employer] 1 mL Infiltration right knee 2 mL [id number] 05/27/26 46095-140-18 [facility] mg/mL suspension for injection Performing Provider: Dona Byrd MD [place] [facility] [place] Administered by: Dona Byrd MD on 08/22/24 15:23 Dose Route Admin Location Dispensed Lot Number Expiration Date [facility] [employer] 40 mg intra-articular right knee 1 mL [id number] 09/26/25 [address]-7 [employer] Results Reviewed Results Reviewed: Laboratory Tests 10/26/23 10/29/23 07/12/24 11:38 09:52 10:53 WBC 11.6 H RBC 4.09 L Hgb 11.7 L Hct 36.3 L Plt Count 383 ESR 36 H Sodium 138 Potassium 4.3 Chloride 108 Carbon Dioxide 24 BUN 14 Creatinine 0.66 AST 21 ALT 7 C-Reactive Protein 3.20 H 25-OH Vitamin D Total 27 L DEXA 04/2023 FINDINGS: AP SPINE L1-L4: BMD 1.121 g/cm2, Z-score 1.0, T-score -0.5, normal. LEFT FEMUR, NECK: BMD 0.637 g/cm2, Z-score -0.8, T-score -2.9, osteoporosis. LEFT FEMUR, TOTAL: BMD 0.677 g/cm2, Z-score -0.7, T-score -2.6, osteoporosis. Assessment & Plan Assessment & Plan (1) Seropositive erosive rheumatoid arthritis: Comment: ++RF++CCP erosive dx 2017 side effect to HCQ On methotrexate throughout Sulfasalazine added around 2020 Code(s): M05.80 - Other rheumatoid arthritis with rheumatoid factor of unspecified site Category: Medical Plan: #Seropositive RA Patient is a 83-year-old female with seropositive rheumatoid arthritis here today for follow up. Currently not on any therapies. No evidence of active synovitis on exam today. We will continue to monitor off DMARDs and potentially consider adding Plaquenil in the future Plan - Monitor off DMARDs - RTC 4 months - Labs before visit: CBC, CMP, ESR, CRP (2) Osteoporosis: Comment: DEXA 04/2023: AP spine -0.5, Left femur neck -2.9, Left femur total -2.6 Alendronate 10/2023 Code(s): M81.0 - Age-related osteoporosis without current pathological fracture Category: Medical Qualifiers: Osteoporosis type: age-related Presence of current pathological fracture: without current pathological fracture Qualified Code(s): M81.0 - Age- related osteoporosis without current pathological fracture Plan: #Osteoporosis Patient with osteoporosis of the hip currently on alendronate. Vitamin-D not at goal. Encouraged vitamin-D supplementation Plan - Alendronate 70mg weekly - Vitamin D supplementation (3) Generalized osteoarthritis: Code(s): M15.9 - Polyosteoarthritis, unspecified Plan: #Polyarticular OA Patient with polyarticular osteoarthritis. 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 Plan: #Long-term Use of Bisphosphonates Risks and benefits of bisphosphonates in the management of osteoporosis Benefits include improved bone density, decreased fracture risk Risks include atypical femoral fractures, GI upset, esophageal strictures Contraindicated in patients with a creatinine clearance < 30 to 35 ml/min Keep vitamin-D at least 35 ng/mL Plan I spent 30 minutes reviewing the record and labs, taking a history, examining the patient, discussing the treatment plan, ordering diagnostic work up and documenting in the medical record Orders: Orders AMB Joint Injection/Aspiration Today M17.11 - Unilateral primary osteo arthritis, right knee Medications: New lidocaine (PF) 1 mL Infiltration ONCE 2 mL 0RF M17.11 - Unilateral primary osteoarthritis, right knee Kenalog (triamcinolone acetonide) 40 mg intra-articular ONCE 1 mL 0RF NS M17.11 - Unilateral primary osteoarthritis, right knee acetaminophen ER (Tylenol Arthritis Pain) 650 mg PO Q8H 90 days 270 tabs 1RF M15.9 - Polyosteoarthritis, unspecified Coding Level of Care Code Est Pt Level 4 (47988) Complex EM visit Add On G2211 Diagnoses Seropositive erosive rheumatoid arthritis M05.80 Age-related osteoporosis without current pathological fracture M81.0 Osteoporosis type: age-related Presence of current pathological fracture: without current pathological fracture Generalized osteoarthritis M15.9 Encounter for ongoing osteoporosis therapy, bisphosphonates M81.0; Z79.83 CPT Codes Coding - 93789 Large joint: 42713 - Large joint ([id number])
== END 2024-08-22 15:12 | disposition home or self-care (01) ==
LOC: HO.RHE 14:08
PROVIDERS: PCP Internal Medicine; Visit Provider Student in an Organized Health Care Education/Training Program
DX: M05.80 Other rheumatoid arthritis with rheumatoid factor of unspecified site (principal); M81.0 Age-related osteoporosis without current pathological fracture; M15.9 Polyosteoarthritis, unspecified; Z79.83 Long term (current) use of bisphosphonates; M17.11 Unilateral primary osteoarthritis, right knee
CPT/HCPCS: 20610; 99214

== ENCOUNTER → 2024-08-22 14:08 | Outpatient (BNVA) | payer MEDICARE, SELFPAY | PROVIDERS: PCP Internal Medicine; Visit Provider Student in an Organized Health Care Education/Training Program | DX: M17.11 Unilateral primary osteoarthritis, right knee (principal); M81.0 Age-related osteoporosis without current pathological fracture; M05.80 Other rheumatoid arthritis with rheumatoid factor of unspecified site; Z79.83 Long term (current) use of bisphosphonates | CPT/HCPCS: 20610; 99212; J3300 ==

== ENCOUNTER 2024-12-21 11:55 | Outpatient (REF) | payer MEDICARE, SELFPAY ==
[2024-12-21 17:56] LABS: MANUAL DIFF FLAG NO
[2024-12-21 18:09] LABS: Hematocrit 35.5 % (37.0-47.0); Hemoglobin 11.4 g/dl (12.0-16.0); Imm Gran Abs Auto 0.07 X10*3/uL (0.00-0.03); Imm Gran Pct Auto 0.6 % (0.0-0.4); Lymphocytes Absolute Auto 1.7 X10*3/uL (1.2-4.9); Mean Corpuscular HGB Conc 32.1 g/dl (31.0-35.0); Mean Corpuscular Hemoglobin 27.6 pg (27.0-33.0); Mean Corpuscular Volume 86.0 fL (80.0-98.0); NRBC Abs Auto 0.000 X10*3/uL (0.0-0.012); NRBC Pct Auto 0.0 /100WBC (0.0-0.2); Platelet Count 373 X10*3/uL (160-400); Red Blood Count 4.13 X10*6/uL (4.20-5.50); White Blood Count 11.9 X10*3/uL (4.8-10.8)
[2024-12-21 18:49] LABS: Alanine Aminotransferase 28 U/L (0-31); Albumin Level 3.7 g/dL (3.5-5.0); Alkaline Phosphatase 129 U/L (39-117); Anion Gap 13 (12-20); Aspartate Amino Transferase 46 U/L (5-31); Blood Urea Nitrogen 11 mg/dL (9-16); Calcium 9.1 mg/dL (8.4-10.2); Carbon Dioxide 26 mmol/L (22-29); Chloride 107 mmol/L (96-108); Estimated Glomerular Filt Rate > 60; Potassium 4.7 mmol/L (3.3-5.1); Sodium 141 mmol/L (135-145); Total Protein 7.7 g/dL (6.5-8.0)
== END 2024-12-21 11:56 | disposition home or self-care (01) ==
LOC: HO.HKASLDS 11:55
PROVIDERS: PCP Internal Medicine; Visit Provider Student in an Organized Health Care Education/Training Program
DX: M81.0 Age-related osteoporosis without current pathological fracture (principal); M15.9 Polyosteoarthritis, unspecified; M05.80 Other rheumatoid arthritis with rheumatoid factor of unspecified site; Z79.83 Long term (current) use of bisphosphonates; Z79.899 Other long term (current) drug therapy
CPT/HCPCS: 36415; 80053; 82306; 85025; 85652; 86140; 99212

== ENCOUNTER 2024-12-21 11:55 | Outpatient (AMB) | payer MEDICARE, SELFPAY ==
--- NOTE | 2024-12-21 12:52 | A.OFFVIS_ITS ---
Vital Signs 12/21/24 12:58 Height 5 ft 4 in Weight 173 lb 15.115 oz BMI 29.9 BP 130/74 Blood Pressure Location Lt brachial Position Sitting Pulse 68 Pulse Source Pulse Oximeter Pulse Oximetry (%) 98 Oxygen Delivery Method Room Air Intake Visit Reasons: RA Intake Note: Patient presents for RA follow up. Allergies hydrochlorothiazide (Zestoretic) Allergy (Unknown, Verified 12/21/24 12:56) Unknown hydroxychloroquine (Plaquenil) Allergy (Unknown, Verified 12/21/24 12:56) Unknown ibuprofen Allergy (Unknown, Verified 12/21/24 12:56) Unknown lisinopril (Zestoretic) Allergy (Unknown, Verified 12/21/24 12:56) Unknown sacubitril (Entresto) Allergy (Unknown, Verified 12/21/24 12:56) Unknown valsartan (Entresto) Allergy (Unknown, Verified 12/21/24 12:56) Unknown Medication List - Last Reconciled 12/21/24 by Dona Byrd MD acetaminophen ER (Tylenol Arthritis Pain) 650 mg PO Q8H 90 days alendronate 70 mg PO QWEEK aspirin 81 mg PO DAILY atorvastatin 40 mg PO DAILY lisinopril 10 mg PO BID metoprolol tartrate 25 mg PO BID metoprolol tartrate 50 mg PO BID omeprazole 20 mg PO DAILY HPI Comments Details: Patient is an 84-year-old female with hypertension, hyperlipidemia c/b CAD s/p CABG, osteoporosis polyarticular osteoarthritis and seropositive erosive rheumatoid for follow up Interval History: Patient last seen 08/22/24 with me - On alendronate 70 mg weekly, not taking Sulfasalazine, methotrexate or folic acid - 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 Subsequently she stopped her sulfasalazine due to GI upset. Currently she is not on any medications for her rheumatoid arthritis - Today she states she is doing okay - Complaining of right knee pain, which she has a brace on - no evidence of active synovitis and so monitored off DMARDs - received right knee injection Today - On alendronate 70mg PO weekly (not taking) - The steroid injection did not help - Has some good days and bad days but is overall okay - Shoulders and arms bother her the most especially at night when she lays on it Rheumatologic History: ++RF++CCP erosive dx 2017 side effect to HCQ On methotrexate throughout Sulfasalazine added around 2020 Initial history: this is an 81-year-old female with seropositive erosive RA who presents as a new patient. 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 She had a history of hypertension, dyslipidemia, CAD s/p CABG who presents for RA evaluation. Patient states that she feels about the same. He has some pain and stiffness of her right shoulder. Her major problem is in her right knee. She states that her arthritis is worse with cold weather and when it is damp. She continues to take methotrexate 10 tabs once weekly plus folic acid and sulfasalazine 500 mg Twice daily. She denies any shortness of breath Current Rheumatology Medication(s): Alendronate 70 mg weekly (not taking) [facility], [facility] Medical History Allergic rhinitis CAD (coronary artery disease) Congestive heart failure Dyslipidemia Hypertension Surgical History Hx of CABG Social History Household Members: None Household Members Other:: [place] Alcohol intake: current Alcohol intake frequency: holidays/special occasions only Alcohol type: wine Patient Tobacco Use Status: Never used Tobacco Review of Systems Const Details: Review of Systems Constitutional: Denies fever, chills, weight loss ENT: Denies vision changes, eye pain or eye redness, dental caries, dry mouth GI: Denies nausea, vomiting, diarrhea, abdominal pain, change in BM Pulm: Denies SOB, MINA, hemoptysis, wheezing Cards: Denies chest pain, palpitations Skin: Denies Raynaud's, rash, nail changes, photosensitivity, PRE CERTIFICATION SPECIALIST: Denies headaches, weakness, paresthesias, recurrent falls MSK: as per HPI All other systems reviewed and are unremarkable except noted above Physical Exam Exam Exam: Vital signs reviewed Physical Examination CONSTITUITIONAL Patient alert and cooperative. Well appearing and in no apparent painful distress MSK Hands * Right Hand: Able to make a fist. No swelling or tenderness to palpation of the MCPs, PIPs or DIPs. * Left Hand: Able to make a fist. No swelling or tenderness to palpation of the MCPs, PIPs or DIPs. * Herbedens and Bouchards nodes noted bilaterally Wrists * Right Wrist: Full ROM to flexion and extension. No swelling or TTP * Left Wrist: Full ROM to flexion and extension. No swelling or TTP Elbows * Right Elbow: Full ROM. No swelling or TTP. No TTP of the medial epicondyle. No TTP of the lateral epicondyle * Left Elbow: Full ROM. No swelling or TTP. No TTP of the medial epicondyle. No TTP of the lateral epicondyle Shoulders * Right shoulder: Decreased ROM. No swelling noted. No TTP of the AC joint. TTP of the subacromial bursa. No TTP of the posterior shoulder * Left shoulder: Decreased ROM. No swelling noted. No TTP of the AC joint. No TTP of the subacromial bursa. No TTP of the posterior shoulder Knees * Right knee: Decreased ROM. Swelling noted. No TTP of the knee joint line. No TTP of pes anserine bursa * Left knee: Decreased ROM. No swelling noted. No TTP of the knee joint line. No TTP of pes anserine bursa. Ankles * Right ankle: Good ankle dorsiflexion and plantar flexion. No swelling. No TTP of the ankle joint * Left ankle: Good ankle dorsiflexion and plantar flexion. No swelling. No TTP of the ankle joint Feet * Right foot: Negative squeeze test * Left foot: Negative squeeze test Tender points? * No tenderness to palpation of the bilateral trapezius, supraspinatus, anterior costochondral junctions, bilateral suboccipital muscle insertions SKIN No rashes Vital Signs: Last Vital Signs Pulse 68 12/21/24 12:58 BP 130/74 12/21/24 12:58 Pulse Ox 98 12/21/24 12:58 Oxygen Delivery Method Room Air 12/21/24 12:58 BMI result Body Mass Index 29.9 Results Reviewed Results Reviewed: Laboratory Tests 10/26/23 10/29/23 07/12/24 11:38 09:52 10:53 WBC 11.6 H RBC 4.09 L Hgb 11.7 L Hct 36.3 L Plt Count 383 ESR 36 H Sodium 138 Potassium 4.3 Chloride 108 Carbon Dioxide 24 BUN 14 Creatinine 0.66 AST 21 ALT 7 C-Reactive Protein 3.20 H 25-OH Vitamin D Total 27 L DEXA 04/2023 FINDINGS: AP SPINE L1-L4: BMD 1.121 g/cm2, Z-score 1.0, T-score -0.5, normal. LEFT FEMUR, NECK: BMD 0.637 g/cm2, Z-score -0.8, T-score -2.9, osteoporosis. LEFT FEMUR, TOTAL: BMD 0.677 g/cm2, Z-score -0.7, T-score -2.6, osteoporosis. Assessment & Plan Assessment & Plan (1) Seropositive erosive rheumatoid arthritis: Comment: ++RF++CCP erosive dx 2016 side effect to HCQ On methotrexate throughout Sulfasalazine added around 2020 Code(s): M05.80 - Other rheumatoid arthritis with rheumatoid factor of unspecified site Category: Medical Plan: #Seropositive RA Patient is a 84-year-old female with seropositive rheumatoid arthritis here t [facility] for follow up. Currently not on any DMARDs. No evidence of active synovitis on exam today. We will continue to monitor off DMARDs and potentially consider adding Plaquenil in the future Plan - Monitor off DMARDs - RTC 6 months - Labs before visit: CBC, CMP, ESR, CRP (2) Osteoporosis: Comment: DEXA 04/2023: AP spine -0.5, Left femur neck -2.9, Left femur total -2.6 Alendronate 10/2023 Code(s): M81.0 - Age-related osteoporosis without current pathological fracture Category: Medical Qualifiers: Osteoporosis type: age-related Presence of current pathological fracture: without current pathological fracture Qualified Code(s): M81.0 - Age- related osteoporosis without current pathological fracture Plan: #Osteoporosis Patient with osteoporosis of the hip currently on alendronate, encouraged patient to restart. Vitamin-D not at goal. Encouraged vitamin-D supplementation Plan - Alendronate 70mg weekly - Vitamin D supplementation (3) Generalized osteoarthritis: Code(s): M15.9 - Polyosteoarthritis, unspecified Plan: #Polyarticular OA Patient with polyarticular osteoarthritis. Recommended topical diclofenac 1% qid for right knee (4) Encounter for ongoing osteoporosis therapy, bisphosphonates: Code(s): M81.0 - Age-related osteoporosis without current pathological fracture; Z79.83 - senior care (current) use of bisphosphonates Plan: #Long-term Use of Bisphosphonates Risks and benefits of bisphosphonates in the management of osteoporosis Benefits include improved bone density, decreased fracture risk Risks include atypical femoral fractures, GI upset, esophageal strictures Contraindicated in patients with a creatinine clearance < 30 to 35 ml/min Keep vitamin-D at least 35 ng/mL Plan I spent 30 minutes reviewing the record and labs, taking a history, examining the patient, discussing the treatment plan, ordering diagnostic work up and documenting in the medical record Orders: Orders Comprehensive Met. Panel 6 Months Z79.899 - Other termite exterminator helper (current) drug the rapy C Reactive Protein 6 Months Z79.899 - Other senior living (current) drug therapy Erythrocyte Sedimentation Rate 6 Months Z79.899 - Other senior living (current) drug therapy Vitamin D 25-OH Total 6 Months Z79.899 - Other senior living (current) drug therapy Complete Blood Count Auto Diff 6 Months Z79.899 - Other termite exterminator helper (current) drug therapy Medications: New diclofenac sodium 1% (Voltaren Arthritis Pain) apply to right knee 4 grams topical QID 100 grams 4RF Refilled alendronate Take 1 tab once weekly, 1st thing in the morning, on an empty stomach, with a large glass of water (at least 6 oz) and stay upright for 30 minutes 70 mg PO QWEEK 12 tabs 1RF Coding Level of Care Code Est Pt Level 4 (11874) Complex EM visit Add On G2211 Diagnoses Seropositive erosive rheumatoid arthritis M05.80 Age-related osteoporosis without current pathological fracture M81.0 Osteoporosis type: age-related Presence of current pathological fracture: without current pathological fracture Generalized osteoarthritis M15.9 Encounter for ongoing osteoporosis therapy, bisphosphonates M81.0; Z79.83
[2024-12-21 12:58] VITALS: BP 130/74; PULSE 68; O2SAT 98; BMI 29.9
== END 2024-12-21 13:46 | disposition home or self-care (01) ==
LOC: HO.RHES 11:56
PROVIDERS: PCP Internal Medicine; Visit Provider Student in an Organized Health Care Education/Training Program
DX: M05.80 Other rheumatoid arthritis with rheumatoid factor of unspecified site (principal); M81.0 Age-related osteoporosis without current pathological fracture; M15.9 Polyosteoarthritis, unspecified; Z79.83 Long term (current) use of bisphosphonates
CPT/HCPCS: 99214; G2211

== ENCOUNTER 2024-12-29 10:17 | Outpatient (AMB) | payer MEDICARE, SELFPAY ==
--- NOTE | 2024-12-29 10:28 | MHC.OFFVIS ---
Vital Signs 12/29/24 10:34 Height 5 ft 4 in Weight 174 lb 13.225 oz BMI 30.0 BP 134/70 Blood Pressure Location Rt brachial Position Sitting Pulse 71 Pulse Source Pulse Oximeter Pulse Oximetry (%) 98 Oxygen Delivery Method Room Air Intake Visit Reasons: discuss meds Intake Note: Patient presents to discuss meds follow up. Allergies hydrochlorothiazide (Zestoretic) Allergy (Unknown, Verified 12/29/24 10:33) Unknown hydroxychloroquine (Plaquenil) Allergy (Unknown, Verified 12/29/24 10:33) Unknown ibuprofen Allergy (Unknown, Verified 12/29/24 10:33) Unknown lisinopril (Zestoretic) Allergy (Unknown, Verified 12/29/24 10:33) Unknown sacubitril (Entresto) Allergy (Unknown, Verified 12/29/24 10:33) Unknown valsartan (Entresto) Allergy (Unknown, Verified 12/29/24 10:33) Unknown Medication List - Last Reconciled 12/29/24 by Dona Byrd MD acetaminophen ER (Tylenol Arthritis Pain) 650 mg PO Q8H 90 days alendronate 70 mg PO QWEEK aspirin 81 mg PO DAILY atorvastatin 40 mg PO DAILY diclofenac sodium 1% (Voltaren Arthritis Pain) 4 grams topical QID lisinopril 10 mg PO BID metoprolol tartrate 25 mg PO BID metoprolol tartrate 50 mg PO BID omeprazole 20 mg PO DAILY HPI Comments Details: Patient is an 84-year-old female with hypertension, hyperlipidemia c/b CAD s/p CABG, osteoporosis polyarticular osteoarthritis and seropositive erosive rheumatoid for follow up Interval History: Patient last seen 08/22/24 with me - On alendronate 70mg PO weekly (not taking), not on any DMARDs - The steroid injection did not help - Has some good days and bad days but is overall okay - Shoulders and arms bother her the most especially at night when she lays on it - Repeat labs ordered Today - On alendronate 70mg PO weekly (not taking), not on any DMARDs - Labs done last visit show Rheumatologic History: ++RF++CCP erosive dx 2016 side effect to HCQ On methotrexate throughout Sulfasalazine added around 2020 DMARDs stopped in 2023 Initial history: this is an 81-year-old female with seropositive erosive RA who presents as a new patient. 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 She had a history of hypertension, dyslipidemia, CAD s/p CABG who presents for RA evaluation. Patient states that she feels about the same. He has some pain and stiffness of her right shoulder. Her major problem is in her right knee. She states that her arthritis is worse with cold weather and when it is damp. She continues to take methotrexate 10 tabs once weekly plus folic acid and sulfasalazine 500 mg Twice daily. She denies any shortness of breath Current Rheumatology Medication(s): Alendronate 70 mg weekly [facility] Medical History Allergic rhinitis CAD (coronary artery disease) Congestive heart failure Dyslipidemia Hypertension Surgical History Hx of CABG Social History Household Members: None Household Members Other:: [place] Alcohol intake: current Alcohol intake frequency: holidays/special occasions only Alcohol type: wine Patient Tobacco Use Status: Never used Tobacco Review of Systems Const Details: Review of Systems Constitutional: Denies fever, chills, weight loss ENT: Denies vision changes, eye pain or eye redness, dental caries, dry mouth GI: Denies nausea, vomiting, diarrhea, abdominal pain, change in BM Pulm: Denies SOB, MINA, hemoptysis, wheezing Cards: Denies chest pain, palpitations Skin: Denies Raynaud's, rash, nail changes, photosensitivity, ETHYLBENZENE 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: Denies headaches, weakness, paresthesias, recurrent falls MSK: as per HPI All other systems reviewed and are unremarkable except noted above Physical Exam Exam Exam: Exam deferred Vital Signs: Last Vital Signs Pulse 71 12/29/24 10:34 BP 134/70 12/29/24 10:34 Pulse Ox 98 12/29/24 10:34 Oxygen Delivery Method Room Air 12/29/24 10:34 BMI result Body Mass Index 30.0 Results Reviewed Results Reviewed: Laboratory Tests 10/29/23 12/21/24 09:52 13:57 WBC 11.9 H RBC 4.13 L Hgb 11.4 L Hct 35.5 L Plt Count 373 ESR 36 H 70 H Sodium 141 Potassium 4.7 Chloride 107 Carbon Dioxide 26 BUN 11 Creatinine 0.60 AST 46 H ALT 28 Alkaline Phosphatase 129 H C-Reactive Protein 3.20 H 3.11 H 25-OH Vitamin D Total 26.9 L Assessment & Plan Assessment & Plan (1) Seropositive erosive rheumatoid arthritis: Comment: ++RF++CCP erosive dx 2017 side effect to HCQ On methotrexate throughout Sulfasalazine added around 2020 Code(s): M05.80 - Other rheumatoid arthritis with rheumatoid factor of unspecified site Category: Medical Plan: #Seropositive RA Patient is a 84-year-old female with seropositive rheumatoid arthritis here today for follow up. Currently not on any DMARDs. Significantly elevated ESR and CRP Advised patient that we should start DMARDs since there is some evidence of underlying activity based on blood work Decrease Tylenol intake to 650mg bid due to transaminitis Plan - SSZ 500mg bid (consider increasing to 1000mg bid at next visit) - RTC 6 months - Labs before visit: CBC, CMP, ESR, CRP (2) Osteoporosis: Comment: DEXA 04/2023: AP spine -0.5, Left femur neck -2.9, Left femur total -2.6 Alendronate 10/2023 Code(s): M81.0 - Age-related osteoporosis without current pathological fracture Category: Medical Qualifiers: Osteoporosis type: age-related Presence of current pathological fracture: without current pathological fracture Qualified Code(s): M81.0 - Age-related osteoporosis without current pathological fracture Plan: #Osteoporosis Patient with osteoporosis of the hip currently on alendronate, encouraged patient to restart. Vitamin-D not at goal. 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) use of bisphosphonates Plan: #Long-term Use of Bisphosphonates Risks and benefits of bisphosphonates in the management of osteoporosis Benefits include improved bone density, decreased fracture risk Risks include atypical femoral fractures, GI upset, esophageal strictures Contraindicated in patients with a creatinine clearance < 30 to 35 ml/min Keep vitamin-D at least 35 ng/mL (4) Encounter for monitoring sulfasalazine therapy: Code(s): Z51.81 - Encounter for therapeutic drug level monitoring; Z79.892 - Other buttermaker (current) drug therapy Plan: #Long-term Use of Sulfasalazine Discussed with patient the risks and benefits of sulfasalazine in the management of the rheumatic condition Benefits include: - Reduced pain, reduce mortality, maintenance of remission then reduction of flares Risks include: - GI upset, hemolysis (especially if G6PD deficiency), eosinophilia, headache, dizziness, rash, elevated LFTs Plan I spent 25 minutes reviewing the record and labs, taking a history, discussing the treatment plan, answering questions and documenting in the medical record Medications: New cholecalciferol (vitamin D3) 125 mcg PO DAILY 90 caps 1RF E55.9 - Vitamin D deficiency, unspecified Coding Level of Care Code Est Pt Level 3 (14029) Complex EM visit Add On G2211 Diagnoses Seropositive erosive rheumatoid arthritis M05.80 Age-related osteoporosis without current pathological fracture M81.0 Osteoporosis type: age-related Presence of current pathological fracture: without current pathological fracture Encounter for ongoing osteoporosis therapy, bisphosphonates M81.0; Z79.83 Encounter for monitoring sulfasalazine therapy Z51.81; Z79.899
[2024-12-29 10:34] VITALS: BP 134/70; PULSE 71; O2SAT 98
== END 2024-12-29 11:17 | disposition home or self-care (01) ==
LOC: HO.RHES 10:17
PROVIDERS: PCP Internal Medicine; Visit Provider Student in an Organized Health Care Education/Training Program
DX: M05.80 Other rheumatoid arthritis with rheumatoid factor of unspecified site (principal); M81.0 Age-related osteoporosis without current pathological fracture; Z79.83 Long term (current) use of bisphosphonates; Z51.81 Encounter for therapeutic drug level monitoring; Z79.899 Other long term (current) drug therapy
CPT/HCPCS: 99213; G2211

== ENCOUNTER → 2024-12-29 10:17 | Outpatient (BNVA) | payer MEDICARE, SELFPAY | PROVIDERS: PCP Internal Medicine; Visit Provider Student in an Organized Health Care Education/Training Program | DX: M05.80 Other rheumatoid arthritis with rheumatoid factor of unspecified site (principal); M81.0 Age-related osteoporosis without current pathological fracture; Z79.83 Long term (current) use of bisphosphonates; Z79.899 Other long term (current) drug therapy | CPT/HCPCS: 99212 ==

== ENCOUNTER 2025-01-02 17:44 | Emergency (ER) | payer MEDICARE, SELFPAY ==
[2025-01-02] VITALS (43 sets, daily range): BP systolic 113–226; BP diastolic 25–89; PULSE 82–100; RESP 12–31; TEMP 36.6–37; O2SAT 94–99; BMI 28.9
--- NOTE | ~2025-01-02 | CT_ITS ---
EXAMINATION: CT HEAD WITHOUT IV CONTRAST HISTORY: hypertensive. TECHNIQUE: Unenhanced helical CT of the head was performed per standard departmental protocol. Coronal and sagittal reformats of the head were also evaluated. One or more of the following techniques was used for dose reduction: Automated exposure control, adjustment of the mA and/or kV according to patient size, use of iterative reconstruction technique. DLP: 625 mGy-cm COMPARISON: There are no prior studies available for comparison. FINDINGS: BRAIN: There is diffuse prominence of the ventricular system and cortical sulci, consistent with atrophy. Periventricular and subcortical white matter hypodensities are noted which are nonspecific, but often seen in the setting of small vessel ischemic disease. There is calcification of the left basal ganglia. There is no mass effect or midline shift. No intra- or extra-axial fluid collections are identified. SINUSES: There is fluid in the bilateral maxillary and sphenoid sinuses. The mastoid air cells and middle ear cavities are well pneumatized. ORBITS: The visualized orbits are unremarkable. BONES/SOFT TISSUES: The extracranial soft tissues are unremarkable. The calvarium is intact. No suspicious lytic or sclerotic lesions. CT/CT head/brain wo IV con IMPRESSION: 1. No evidence of intracranial hemorrhage. 2. Fluid in the bilateral maxillary and sphenoid sinuses. Electronically signed by: Alexis Culp MD 01/03/2025 08:25 AM EDT
--- NOTE | 2025-01-02 18:33 | ECG_ITS ---
Test Reason : HYPERTENSION Blood Pressure : */* mmHG Vent. Rate : 88 BPM Atrial Rate : 88 BPM P-R Int : 158 ms QRS Dur : 88 ms QT Int : 368 ms P-R-T Axes : 50 10 38 degrees QTcB Int : 445 ms Sinus rhythm with frequent Premature ventricular complexes Minimal voltage criteria for LVH, may be normal variant ( R in aVL ) Nonspecific ST abnormality Incomplete right bundle branch block Abnormal ECG No previous ECGs available Referred By: Garett Lopez Electronically Signed By: CRISTY THOMPSON MD
--- NOTE | 2025-01-02 18:33 | ED_ITS ---
HPI - General Adult General Chief complaint: General Medical Stated complaint: UTI? Time Seen by Provider: 01/02/25 19:38 Source: patient and family Mode of arrival: ambulatory Limitations: no limitations History of Present Illness ED Provider: Dr. Mariely Arellano HPI narrative: Patient comes to the emergency room accompanied by her son. Patient reports that earlier today around 13:30, 7 hours ago, patient has a sudden onset of trouble speaking. Patient states that she knew what she wanted to say what the words would not, out. Patient states it lasted for about 5 minutes. Patient denies any upper or lower extremity weakness. Patient denies headache. Patient states that for the last 2 weeks, she has been having UTI like symptoms including dysuria, urgency. Patient reports that she attributed her symptoms to not eating breakfast today. At this time, patient states that she is completely asymptomatic. Related Data Home Medications ?Medication ?Instructions ?Recorded ?Confirmed aspirin 81 mg chewable tablet 81 mg PO DAILY 07/09/22 12/29/24 atorvastatin 40 mg tablet 40 mg PO DAILY 07/09/2206/20 lisinopril 10 mg tablet 10 mg PO BID 07/09/22 metoprolol tartrate 25 mg tablet 25 mg PO BID 07/09/22 12/29/24 metoprolol tartrate 50 mg tablet 50 mg PO BID 07/09/22 12/29/24 omeprazole 20 mg capsule,delayed 20 mg PO DAILY 12/29/24 release Previous Rx's ?Medication ?Instructions ?Recorded acetaminophen 650 mg 650 mg PO Q8H 90 days #270 t abs 08/22/24 tablet,extended release (Tylenol Arthritis Pain) alendronate 70 mg tablet 70 mg PO QWEEK #12 tabs 11/28 08/20 diclofenac sodium 1 % topical gel 4 g topical QID #100 grams 12/21/24 (Voltaren Arthritis Pain) cholecalciferol (vitamin D3) 125 125 mcg PO DAILY #90 caps 12/29/24 mcg (5,000 unit) capsule sulfasalazine 500 mg tablet 500 mg PO BID 90 days #180 tabs 12/29/24 Allergies Allergy/AdvReac Type Severity Reaction Status Date / Time hydrochlorothiazide Allergy Unknown Unknown Verified 01/02/25 18:27 (Zestoretic) hydroxychloroquine Allergy Unknown Unknown Verified 01/02/25 18:27 (Plaquenil) ibuprofen Allergy Unknown Unknown Verified 01/02/25 18:27 lisinopril (Zestoretic) Allergy Unknown Unknown Verified 01/02/25 18:27 sacubitril (Entresto) Allergy Unknown Unknown Verified 01/02/25 18:27 valsartan (Entresto) Allergy Unknown Unknown Verified 01/02/25 18:27 Review of Systems 2 Review of Systems: Constitutional : No Weight loss, No Fever, No Chills, No Night Sweats, No Fatigue, No Malaise ENT/Mouth : No Hearing loss, No Ear Pain, No Nasal Congestion, No Sinus Pain, No Hoarseness, No sore throat, No Rhinorrhea, No Swallowing Difficulty Eyes: No Eye Pain, No Swelling, No Redness, No Foreign Body, No Discharge, No Vision Changes Cardiovascular : No Chest Pain, No SOB, No Dyspnea on Exertion, No Orthopnea, No Edema, No Palpitations Respiratory : No Cough, No Sputum, No Wheezing, No Smoke Exposure, No Dyspnea Gastrointestinal : No Nausea, No Vomiting, No Diarrhea, No Constipation, No abdominal Pain, No Hematochezia, No Melena Genitourinary : no irregular bleeding, No Dysuria, No Urinary Frequency, No Hematuria, No Urinary Incontinence, No Urgency, No Flank Pain, No Urinary Flow Changes, No Hesitancy Musculoskeletal : No joint pain, No Myalgias, No Joint Swelling Skin : No Skin Lesions, No rash Neuro : Patient reports 5 minutes of arthralgia No Weakness, No Numbness, No Paresthesias, No Loss of Consciousness, No Dizziness, No Headache Psych : No Anxiety/Panic, No Depression, No SI/HI/AH/VH, No Social Issues, Heme/Lymph: No Bruising, No Bleeding,No Lymphadenopathy Endocrine : No Polyuria, No Polydipsia, No Temperature Intolerance [facility] Past Medical History Medical History Allergic rhinitis CAD (coronary artery disease) Congestive heart failure Dyslipidemia Hypertension Surgical History Hx of CABG Social History Social History Household Members: None Household Members Other:: [employer] [address] Alcohol intake: current Alcohol intake frequency: holidays/special occasions only Alcohol type: wine Patient Tobacco Use Status: Never used Tobacco Advance Directives: No Advance Directives Information Provided: No Physical Exam ED Exam Exam: Appearance: Alert. Oriented X3. No acute distress. Eyes: Pupils equal, round and reactive to light. ENT: Pharynx normal. Neck: Normal inspection. Neck supple. No lymph nodes noted. No crepitus CVS: Normal heart rate and rhythm. Pulses normal. Normal S1 and S2 Respiratory: No respiratory distress. Breath sounds normal. No Wheezing. No rales Abdomen: Soft and nontender. No rigidity. No distention. Skin: Skin warm and dry. Normal skin color. Normal skin turgor. Extremities: No lower extremity edema. No Lacerations. No Rash Neuro: Oriented X 3. No motor deficit. No sensory deficit. Moving all extremities. No slurred speech. CN 2 through 12 grossly intact, NIH score 0, GCS 15 Psych: calm, cooperative, normal affect Vital Signs: Vital Signs - 24 hr 01/02/25 18:23 01/02/25 18:33 01/02/25 19:43 Temperature 98.6 F Pulse Rate 82 83 Respiratory Rate 16 18 Blood Pressure 214/86 H 226/89 H 206/74 H Pulse Oximetry 98 Oxygen Delivery Method Room Air 01/02/25 19:54 01/02/25 20:00 01/02/25 20:05 Temperature Pulse Rate 82 90 83 Respiratory Rate 17 20 Blood Pressure 207/72 H 182/66 H 173/57 H Pulse Oximetry Oxygen Delivery Method 01/02/25 20:09 01/02/25 20:10 01/02/25 20:14 Temperature Pulse Rate 86 90 93 Respiratory Rate 18 26 H Blood Pressure 177/57 H 181/62 H 183/56 H Pulse Oximetry 98 Oxygen Delivery Method Room Air 01/02/25 20:20 01/02/25 20:25 01/02/25 20:29 Temperature Pulse Rate 100 92 96 Respiratory Rate 23 H 25 H Blood Pressure 201/66 H 174/57 H 161/60 H Pulse Oximetry 98 97 Oxygen Delivery Method Room Air Room Air 01/02/25 20:34 01/02/25 20:39 01/02/25 20:44 Temperature Pulse Rate 89 85 91 Respiratory Rate 24 H 21 H Blood Pressure 161/52 H 153/54 H 164/47 H Pulse Oximetry 97 97 Oxygen Delivery Method Room Air Room Air 01/02/25 20:49 01/02/25 20:54 01/02/25 20:59 Temperature Pulse Rate 92 87 88 Respiratory Rate 12 22 H Blood Pressure 157/49 H 147/51 H 150/51 H Pulse Oximetry 99 96 Oxygen Delivery Method Room Air Room Air 01/02/25 21:05 01/02/25 21:09 01/02/25 21:15 Temperature Pulse Rate 88 88 89 Respiratory Rate 14 21 H Blood Pressure 129/51 L 145/49 H 153/47 H Pulse Oximetry 98 97 98 Oxygen Delivery Method Room Air Room Air 01/02/25 21:20 01/02/25 21:30 01/02/25 21:35 Temperature Pulse Rate 88 88 90 Respiratory Rate 16 25 H 14 Blood Pressure 145/45 H 160/46 H 150/49 H Pulse Oximetry 98 96 98 Oxygen Delivery Method Room Air Room Air Room Air 01/02/25 21:45 01/02/25 21:50 01/02/25 21:55 Temperature Pulse Rate 92 93 92 Respiratory Rate 28 H 19 16 Blood Pressure 156/44 H 163/48 H 124/46 L Pulse Oximetry 97 98 98 Oxygen Delivery Method Room Air Room Air 01/02/25 22:04 01/02/25 22:10 01/02/25 22:15 Temperature Pulse Rate 94 89 93 Respiratory Rate 15 Blood Pressure 145/42 H 132/42 L 141/41 H Pulse Oximetry 99 Oxygen Delivery Method Room Air 01/02/25 22:20 01/02/25 22:30 01/02/25 22:36 Temperature Pulse Rate 88 89 91 Respiratory Rate 25 H 25 H 27 H Blood Pressure 137/50 L 133/38 L 126/40 L Pulse Oximetry 94 94 95 Oxygen Delivery Method Room Air Room Air Room Air 01/02/25 22:40 01/02/25 22:45 01/02/25 22:50 Temperature Pulse Rate 99 93 97 Respiratory Rate 29 H 17 22 H Blood Pressure 134/40 L 134/43 L 117/32 L Pulse Oximetry 98 99 99 Oxygen Delivery Method Room Air Room Air Room Air 01/02/25 22:55 01/02/25 23:01 Temperature Pulse Rate 91 93 Respiratory Rate 25 H 26 H Blood Pressure 140/46 H 142/40 H Pulse Oximetry 95 95 Oxygen Delivery Method Room Air Room Air BMI result Body Mass Index 28.9 NIH Stroke Scale Internal: Initial- Upon Arrival Level of Consciousness: Alert Level of Consciousness Questions: Answers both questions correctly Level of Consciousness Commands: Performs both tasks correctly Best Gaze: Normal Visual: No visual loss Facial Palsy: Normal Motor Arm (Right): No drift Motor Arm (Left): No drift Motor Leg (Right): No drift Motor Leg (Left): No drift Limb Ataxia: Absent Sensory: Normal Best Language: No aphasia Dysarthia: Normal Extinction and Inattention: No abnormality Score: 0 Course Course Course Narrative: RME: 84-year-old female presents to ED for UTI symptoms. Patient states increased urgency and urge urinate. Patient was treated for UTI 2 weeks ago. The patient also states she had a moment where she forgot her words while talking to her doctor around 12:00pm. Patient denies slurred speech but or just hard to find certain words. Patient states that only lasted 30 seconds. Primary care provider informed her to come to the ED. Presently NIH score is 0. Patient is hypertensive. Patient to be brought back to the ED. Labs EKG head CT scan ordered Medications Administered Generic Name Dose Route Start Last Admin Trade Name Freq PRN Reason Stop Dose Admin Nicardipine HCl 25 mg/ Sodium 250 mls @ 0 mls/hr 01/02/25 19:45 01/02/25 22:04 Chloride IVCONT Infused .Q0M SHYANN Titration Protocol Per Protocol Nicardipine HCl 25 mg/ Sodium 250 mls @ 0 mls/hr 01/02/25 22:15 01/02/25 22:15 Chloride IVCONT 15 mg/hr .Q0M SHYANN 150 mls/hr Protocol Administration Per Protocol Medical Decision Making Medical Decision Making [facility] Narrative: My interpretation of EKG: Sinus rhythm with PVCs, heart rate 88, no ST segment depression or elevation, no T-wave inversion other than PVCs, QTC 445 My interpretation of labs: Patient's white blood cell count 11.5 which seems to be chronic for the patient, hematology at baseline, normal coagulation times, chemistry within normal limits, LFTs normal. Serology negative for COVID Head CT, patient has a left basal ganglia bleed which is 13 mm x 7 mm with no midline shift. Radiology report has not crossed over due to downtime. I discussed the CT scan with Dr. Funk from Radiology However, patient had a blood pressure of 226/89. Patient states that last week she went to see her primary care physician and it was in the 130s. Patient states that she is compliant with her lisinopril. The blood pressure was checked multiple times, all BPs between 214 and 226. Patient was started on IV nicardipine. Urinalysis pending [facility] and several hospitals that we called in [place] are closed for transfers. Our neighboring hospitalist do not have neurosurgery. I discussed the above-mentioned with the patient's family, patient is agreeable to go to [place] or any of the branches in [place]. 04/17/2008, patient's blood pressure momentarily dropped to 129/51. Next blood pressure check 145/49, nifedipine drip still running Patient remains awake, alert and oriented x3, asymptomatic, GCS 15 Patient was accepted at the [facility] in [place], [place]. Patient will need an ICU bed. Dr. Culver kindly accepted our patient The family and the patient has been updated, they all agree with the plan. Differential Diagnosis Differential Diagnoses: The differential diagnosis associated with the presentation includes (TIA, CVA, intracranial bleed, hypertensive emergency) Admission/Observation Consideration of admission/observation: Escalation of care including admission/observation considered Consult Healthcare Provider Management of the patient was discussed with: [employer] Lab Data MDM Lab Attestation statement: I reviewed the patient's lab results. 01/02/25 18:52 01/02/25 18:52 Labs: Lab Results 01/02/25 01/02/25 01/02/25 Range/Units 18:52 19:59 20:21 WBC 11.5 H (4.8-10.8) X10*3/uL RBC 4.45 (4.20-5.50) X10*6/uL Hgb 12.3 (12.0-16.0) g/dl Hct 38.1 (37.0-47.0) % MCV 85.6 (80.0-98.0) fL MCH 27.6 (27.0-33.0) pg MCHC 32.3 (31.0-35.0) g/dl RDW 15.1 (11.0-16.0) % Plt Count 372 (160-400) X10*3/uL MPV 9.0 L (9.4-12.3) fL Immature Gran % (Auto) 0.5 H (0.0-0.4) % Neut % (Auto) 67.7 (45-73) % Lymph % (Auto) 17.9 L (20-40) % [place] % (Auto) 10.8 (2-11) % Eos % (Auto) 2.8 (0-4) % Baso % (Auto) 0.3 (0-2) % Lymph # (Auto) 2.1 (1.2-4.9) X10*3/uL [place] # (Auto) 1.2 (0.1-1.2) X10*3/uL Eos # (Auto) 0.3 (0.0-0.4) X10*3/uL Baso # (Auto) 0.0 (0.0-0.2) X10*3/uL Abs Immat Gran (auto) 0.06 H (0.00-0.03) X10*3/uL Absolute Neuts (auto) 7.8 (2.0-8.3) x10*3/uL Absolute Nucleated RBC 0.000 (0.0-0.012) X10*3/uL Nucleated RBC % (auto) 0.0 (0.0-0.2) /100WBC PT 11.1 (10.9-12.4) SEC INR 1.0 (0.9-1.1) APTT 28.1 (26.7-34.1) SEC Sodium 139 (135-145) mmol/L Potassium 5.0 (3.3-5.1) mmol/L Chloride 104 (96-108) mmol/L Carbon Dioxide 25 (22-29) mmol/L Anion Gap 15 (12-20) BUN 18 H (9-16) mg/dL Creatinine 0.92 (0.5-1.4) mg/dL Estim Creat Clear Calc 47.1 Estimated GFR 58 Random Glucose 99 (60-115) mg/dL Calcium 9.4 (8.4-10.2) mg/dL Total Bilirubin 0.4 (0.0-1.0) mg/dL AST 39 H (5-31) U/L ALT 17 (0-31) U/L Alkaline Phosphatase 124 H (39-117) U/L Troponin I High Sens 3.9 (<3.5-17.0) ng/L Total Protein 8.2 H (6.5-8.0) g/dL Albumin 4.1 (3.5-5.0) g/dL Urine Color Yellow Urine Appearance Cloudy Urine pH 6.5 (5.0-9.0) Ur Specific [place] 1.010 (1.005-1.025) Urine Protein Negative (Neg-Trace) mg/dL Urine Glucose (UA) Negative (Negative) mg/dL Urine Ketones Negative (Negative) mg/dL Urine Blood Small (1+) H (Negative) Urine Nitrite Positive H (Negative) Ur Leukocyte Esterase Large (3+) H (Negative) Urine RBC 0-2 (0-2) /HPF Urine WBC >50 H (0-5) /HPF Ur Squamous Epith Cells 0-2 (0-2) /HPF Urine Bacteria 4+ (None Seen) Hyaline Casts 0-2 (0-2) /LPF COVID-19 ([facility]) Negative (Negative) COVID-19 Clin Com See Note Independent Interpretation I performed an independent interpretation of an: EKG and CT Scan Radiology Impression Discussion of test interpretation with radiology: I discussed test interpretation with the radiologist Independent Historian Clinical information obtained from an independent historian. History obtained from or confirmed by: Other (Patient's son) Chronic Conditions Patient?s care impacted by: Hypertension Critical Care Time Critical Care Time Critical Care Time: Yes Total Critical Care Time: 90 Attestation: I have personally provided critical care time. Time includes review of lab data, radiology results, discussion with consultants, and monitoring for potential decompensation. Intervention performed as documented. Discharge Plan Discharge Clinical Impression: Hypertensive emergency, Basal ganglia hemorrhage Patient Disposition: [facility] Transfer Details: [facility] in [place], [place]. ICU, accepting physician: Dr. Culver Prescriptions: No Action metoprolol tartrate 25 mg tablet 25 mg PO BID metoprolol tartrate 50 mg tablet 50 mg PO BID omeprazole 20 mg capsule,delayed release(DR/EC) 20 mg PO DAILY lisinopril 10 mg tablet 10 mg PO BID atorvastatin 40 mg tablet 40 mg PO DAILY aspirin 81 mg tablet,chewable 81 mg PO DAILY alendronate 70 mg tablet 70 mg PO QWEEK Qty: 12 1RF Rx Instructions: Take 1 tab once weekly, 1st thing in the morning, on an empty stomach, with a large glass of water (at least 6 oz) and stay upright for 30 minutes diclofenac sodium [Voltaren Arthritis Pain] 1 % gel 4 g topical QID Qty: 100 4RF Rx Instructions: apply to right knee acetaminophen [Tylenol Arthritis Pain] 650 mg tablet extended release 650 mg PO Q8H 90 Days Qty: 270 1RF cholecalciferol (vitamin D3) 125 mcg (5,000 unit) capsule 125 mcg PO DAILY Qty: 90 1RF sulfasalazine 500 mg tablet 500 mg PO BID 90 Days Qty: 180 1RF Rx Instructions: give with food (meal/snack) Print Language: Frisian
[2025-01-02 19:24] LABS: Hematocrit 38.1 % (37.0-47.0); Hemoglobin 12.3 g/dl (12.0-16.0); Imm Gran Abs Auto 0.06 X10*3/uL (0.00-0.03); Imm Gran Pct Auto 0.5 % (0.0-0.4); Lymphocytes Absolute Auto 2.1 X10*3/uL (1.2-4.9); MANUAL DIFF FLAG NO; Mean Corpuscular HGB Conc 32.3 g/dl (31.0-35.0); Mean Corpuscular Hemoglobin 27.6 pg (27.0-33.0); Mean Corpuscular Volume 85.6 fL (80.0-98.0); NRBC Abs Auto 0.000 X10*3/uL (0.0-0.012); NRBC Pct Auto 0.0 /100WBC (0.0-0.2); Platelet Count 372 X10*3/uL (160-400); Red Blood Count 4.45 X10*6/uL (4.20-5.50); White Blood Count 11.5 X10*3/uL (4.8-10.8)
[2025-01-02 19:29] LABS: Anion Gap 15 (12-20); INTERNATIONAL NORM RATIO 1.0 (0.9-1.1); Prothrombin Time 11.1 SEC (10.9-12.4)
[2025-01-02 19:32] LABS: Partial Thromboplastin Time 28.1 SEC (26.7-34.1)
[2025-01-02 19:33] LABS: Alanine Aminotransferase 17 U/L (0-31); Albumin Level 4.1 g/dL (3.5-5.0); Alkaline Phosphatase 124 U/L (39-117); Aspartate Amino Transferase 39 U/L (5-31); Blood Urea Nitrogen 18 mg/dL (9-16); Calcium 9.4 mg/dL (8.4-10.2); Carbon Dioxide 25 mmol/L (22-29); Chloride 104 mmol/L (96-108); Creatinine Clr Calc Pharmacy 47.1; Estimated Glomerular Filt Rate 58; Potassium 5.0 mmol/L (3.3-5.1); Sodium 139 mmol/L (135-145); Total Protein 8.2 g/dL (6.5-8.0)
[2025-01-02 19:40] LABS: Troponin-I High Sensitivity 3.9 ng/L (<3.5-17.0)
--- NOTE | 2025-01-02 19:55 | PC.NURSE ---
pt medicated per MAR, connected to quality assurance monitor chassis, IV line placed connected to Cardene NS, pt A+Ox3, nuero's intact
[2025-01-02 20:18] LABS: COVID-19 Test Negative (Negative); IDNOW Serial# 58CA691E
[2025-01-02 20:31] LABS: Appearance Urine Cloudy; Glucose Urine UA Negative (Negative); PH 6.5 (5.0-9.0); Specific Gravity - Urine 1.010 (1.005-1.025); UMIC TRIGGER UACC YES
[2025-01-02 21:00] LABS: UACC Culture Trigger YES
--- NOTE | 2025-01-02 21:47 | PC.NURSE ---
nurse to nurse report given to SOLA Walters at [facility] ICU, pt pending EMS transport ETA of 2230 for arrival
--- NOTE | 2025-01-02 22:25 | PC.NURSE ---
Addendum entered by Johnson Cerda RN 01/02/25 22:27: @[id number] first bag of Cardene infused Original Note: Cardene NS drip infused at this time, pt BP still increased between 140/50's - 150's/50's, provider Porter Arellano made aware new order for second bag of Cardene NS to be hung
--- NOTE | 2025-01-02 23:46 | PC.NURSE ---
[facility] at the bedside, spoke w/ Romeo RN at [facility] ICU updating on pt status
--- NOTE | 2025-01-02 23:48 | PC.NURSE ---
pt transferring to [facility] ICU via [facility], Pete PRESLEY drip running approximately 220mL infused at this time
--- NOTE | 2025-01-07 17:29 | ED_ITS ---
HPI - General Adult General Chief complaint: General Medical Stated complaint: UTI? Time Seen by Provider: 01/02/25 19:38 Source: patient and family Mode of arrival: ambulatory Limitations: no limitations Related Data Home Medications ?Medication ?Instructions ?Recorded ?Confirmed aspirin 81 mg chewable tablet 81 mg PO DAILY 07/09/22 12/29/24 atorvastatin 40 mg tablet 40 mg PO DAILY 07/09/2206/20 lisinopril 10 mg tablet 10 mg PO BID 07/09/22 metoprolol tartrate 25 mg tablet 25 mg PO BID 07/09/22 12/29/24 metoprolol tartrate 50 mg tablet 50 mg PO BID 07/09/22 12/29/24 omeprazole 20 mg capsule,delayed 20 mg PO DAILY 12/29/24 release Previous Rx's ?Medication ?Instructions ?Recorded acetaminophen 650 mg 650 mg PO Q8H 90 days #270 t abs 08/22/24 tablet,extended release (Tylenol Arthritis Pain) alendronate 70 mg tablet 70 mg PO QWEEK #12 tabs 11/28 08/20 diclofenac sodium 1 % topical gel 4 g topical QID #100 grams 12/21/24 (Voltaren Arthritis Pain) cholecalciferol (vitamin D3) 125 125 mcg PO DAILY #90 caps 12/29/24 mcg (5,000 unit) capsule sulfasalazine 500 mg tablet 500 mg PO BID 90 days #180 tabs 12/29/24 Allergies Allergy/AdvReac Type Severity Reaction Status Date / Time hydrochlorothiazide Allergy Unknown Unknown Verified 01/02/25 18:27 (Zestoretic) hydroxychloroquine Allergy Unknown Unknown Verified 01/02/25 18:27 (Plaquenil) ibuprofen Allergy Unknown Unknown Verified 01/02/25 18:27 lisinopril (Zestoretic) Allergy Unknown Unknown Verified 01/02/25 18:27 sacubitril (Entresto) Allergy Unknown Unknown Verified 01/02/25 18:27 valsartan (Entresto) Allergy Unknown Unknown Verified 01/02/25 18:27 [facility] Past Medical History Medical History Allergic rhinitis CAD (coronary artery disease) Congestive heart failure Dyslipidemia Hypertension Surgical History Hx of CABG Social History Social History Household Members: None Household Members Other:: [place] Alcohol intake: current Alcohol intake frequency: holidays/special occasions only Alcohol type: wine Patient Tobacco Use Status: Never used Tobacco Advance Directives: No Advance Directives Information Provided: No Physical Exam ED Vital Signs: BMI result Body Mass Index 28.9 Course Course Course Narrative: 01/07/25 17:29 [place] Aragon: Urine culture positive for E coli. Patient was transferred to [facility]. Spoke to charge nurse on N5 who advised that patient was discharged on Vantin which should provide adequate coverage for this infection. No additional treatment indicated. Medications Administered Discontinued Medications Generic Name Dose Route Start Last Admin Trade Name Freq PRN Reason Stop Dose Admin Nicardipine HCl 25 mg/ Sodium 250 mls @ 0 mls/hr 01/02/25 19:45 01/02/25 22:04 Chloride IVCONT Infused .Q0M SHYANN Titration Protocol Per Protocol Nicardipine HCl 25 mg/ Sodium 250 mls @ 0 mls/hr 01/02/25 22:15 01/02/25 23:09 Chloride IVCONT 12.5 mg/hr .Q0M SHYANN 125 mls/hr Protocol Titration Per Protocol Medical Decision Making Lab Data 01/02/25 18:52 01/02/25 18:52 Labs: Lab Results 01/02/25 01/02/25 01/02/25 Range/Units 18:52 19:59 20:21 WBC 11.5 H (4.8-10.8) X10*3/uL RBC 4.45 (4.20-5.50) X10*6/uL Hgb 12.3 (12.0-16.0) g/dl Hct 38.1 (37.0-47.0) % MCV 85.6 (80.0-98.0) fL MCH 27.6 (27.0-33.0) pg MCHC 32.3 (31.0-35.0) g/dl RDW 15.1 (11.0-16.0) % Plt Count 372 (160-400) X10*3/uL MPV 9.0 L (9.4-12.3) fL Immature Gran % (Auto) 0.5 H (0.0-0.4) % Neut % (Auto) 67.7 (45-73) % Lymph % (Auto) 17.9 L (20-40) % [place] % (Auto) 10.8 (2-11) % Eos % (Auto) 2.8 (0-4) % Baso % (Auto) 0.3 (0-2) % Lymph # (Auto) 2.1 (1.2-4.9) X10*3/uL [place] # (Auto) 1.2 (0.1-1.2) X10*3/uL Eos # (Auto) 0.3 (0.0-0.4) X10*3/uL Baso # (Auto) 0.0 (0.0-0.2) X10*3/uL Abs Immat Gran (auto) 0.06 H (0.00-0.03) X10*3/uL Absolute Neuts (auto) 7.8 (2.0-8.3) x10*3/uL Absolute Nucleated RBC 0.000 (0.0-0.012) X10*3/uL Nucleated RBC % (auto) 0.0 (0.0-0.2) /100WBC PT 11.1 (10.9-12.4) SEC INR 1.0 (0.9-1.1) APTT 28.1 (26.7-34.1) SEC Sodium 139 (135-145) mmol/L Potassium 5.0 (3.3-5.1) mmol/L Chloride 104 (96-108) mmol/L Carbon Dioxide 25 (22-29) mmol/L Anion Gap 15 (12-20) BUN 18 H (9-16) mg/dL Creatinine 0.92 (0.5-1.4) mg/dL Estim Creat Clear Calc 47.1 Estimated GFR 58 Random Glucose 99 (60-115) mg/dL Calcium 9.4 (8.4-10.2) mg/dL Total Bilirubin 0.4 (0.0-1.0) mg/dL AST 39 H (5-31) U/L ALT 17 (0-31) U/L Alkaline Phosphatase 124 H (39-117) U/L Troponin I High Sens 3.9 (<3.5-17.0) ng/L Total Protein 8.2 H (6.5-8.0) g/dL Albumin 4.1 (3.5-5.0) g/dL Urine Color Yellow Urine Appearance Cloudy Urine pH 6.5 (5.0-9.0) Ur Specific [place] 1.010 (1.005-1.025) Urine Protein Negative (Neg-Trace) mg/dL Urine Glucose (UA) Negative (Negative) mg/dL Urine Ketones Negative (Negative) mg/dL Urine Blood Small (1+) H (Negative) Urine Nitrite Positive H (Negative) Ur Leukocyte Esterase Large (3+) H (Negative) Urine RBC 0-2 (0-2) /HPF Urine WBC >50 H (0-5) /HPF Ur Squamous Epith Cells 0-2 (0-2) /HPF Urine Bacteria 4+ (None Seen) Hyaline Casts 0-2 (0-2) /LPF COVID-19 ([facility]) Negative (Negative) COVID-19 Clin Com See Note Discharge Plan Discharge Clinical Impression: Hypertensive emergency, Basal ganglia hemorrhage Patient Disposition: [facility] Hospital Transfer Details: [facility] in [place], [place]. ICU, accepting physician: Dr. Culver Prescriptions: No Action metoprolol tartrate 25 mg tablet 25 mg PO BID metoprolol tartrate 50 mg tablet 50 mg PO BID omeprazole 20 mg capsule,delayed release(DR/EC) 20 mg PO DAILY lisinopril 10 mg tablet 10 mg PO BID atorvastatin 40 mg tablet 40 mg PO DAILY aspirin 81 mg tablet,chewable 81 mg PO DAILY alendronate 70 mg tablet 70 mg PO QWEEK Qty: 12 1RF Rx Instructions: Take 1 tab once weekly, 1st thing in the morning, on an empty stomach, with a large glass of water (at least 6 oz) and stay upright for 30 minutes diclofenac sodium [Voltaren Arthritis Pain] 1 % gel 4 g topical QID Qty: 100 4RF Rx Instructions: apply to right knee acetaminophen [Tylenol Arthritis Pain] 650 mg tablet extended release 650 mg PO Q8H 90 Days Qty: 270 1RF cholecalciferol (vitamin D3) 125 mcg (5,000 unit) capsule 125 mcg PO DAILY Qty: 90 1RF sulfasalazine 500 mg tablet 500 mg PO BID 90 Days Qty: 180 1RF Rx Instructions: give with food (meal/snack) Interventions: Acute Care Transfer Worksheet (ED) Last Done: 01/02/25 23:50 Discharge Date/Time: 01/03/25 00:00 Print Language: Bengali
== END 2025-01-03 | disposition short-term general hospital (02) ==
PROVIDERS: Physician Assistant; Emergency Provider Emergency Medicine; PCP Internal Medicine
DX: I61.0 Nontraumatic intracerebral hemorrhage in hemisphere, subcortical (principal); I10 Essential (primary) hypertension; R29.700 NIHSS score 0; I16.1 Hypertensive emergency; R82.71 Bacteriuria
CPT/HCPCS: 36415; 70450; 80053; 81001; 84484; 85025; 85610; 85730; 87086; 87088; 87186; 87635; 93005; 96365; 96366; 99285; 99291; 99292; J2404

== ENCOUNTER → 2025-01-02 18:33 | Outpatient (BNV) | payer MEDICARE, SELFPAY | PROVIDERS: Emergency Provider Emergency Medicine; PCP Internal Medicine; Visit Provider Radiology Diagnostic Radiology | DX: I10 Essential (primary) hypertension (principal); J32.0 Chronic maxillary sinusitis; J32.3 Chronic sphenoidal sinusitis | CPT/HCPCS: 70450 ==

== ENCOUNTER → 2025-01-02 18:33 | Outpatient (BNV) | payer MEDICARE, SELFPAY | PROVIDERS: Emergency Provider Emergency Medicine; PCP Internal Medicine; Visit Provider Internal Medicine Cardiovascular Disease | DX: I45.10 Unspecified right bundle-branch block (principal); I49.3 Ventricular premature depolarization | CPT/HCPCS: 93010 ==